=== PATIENT | female | born 1930 | race Caucasian/White ===

== ENCOUNTER 2016-12-21 11:08 | Inpatient (IN) ==
[2016-12-21 12:16] LABS: MANUAL DIFF NEEDED? NO
[2016-12-21 12:18] LABS: BASO% 0.6 % (0.0-0.8); EOS# 0.33 X1000 (0.0-0.7); EOS% 4.8 % (0.0-10.0); HEMATOCRIT 32.5 % (37.0-47.0); HEMOGLOBIN 10.5 g/dL (12.0-16.0); LYMPH# 1.33 X1000 (1.2-3.4); LYMPH% 19.5 % (20.5-51.1); MCH 29.6 PG (27-31); MCHC 32.3 g/dL (33-37); MCV 91.5 FL (81-99); MONO% 11.7 % (1.7-9.3); MPV 11.6 FL (7.4-10.4); NEUT% 63.4 % (42.2-75.2); PLT 160 X1000 (130-400); RBC 3.55 XMIL (4.2-5.4)
--- NOTE | 2016-12-21 12:24 | Diag Imaging Result Doc PS360 ---
EXAM: CHEST-2 VIEWS HISTORY: SOB TECHNIQUE: Upright AP and lateral COMPARISON: 05/06/2014 FINDINGS: The lungs are well expanded. The heart is borderline mildly prominent. Sternal wires are present.. The vessels are not distended. There are no infiltrates. No pleural effusions. Old injury to each shoulder. IMPRESSION: No pneumonia or congestive failure. Electronically signed by Willie Guidry 12/21/2016 12:21 PM
--- NOTE | 2016-12-21 12:29 | EKG Report ---
Test Performed on : 12/21/2016 12:09:56 PM Test Reason : chest pain Blood Pressure : / mmHG Vent. Rate : 055 BPM Atrial Rate : 055 BPM P-R Int : 244 ms QRS Dur : 086 ms QT Int : 394 ms P-R-T Axes : 021 -01 042 degrees QTc Int : 376 ms Sinus bradycardia. with 1st degree AV block. Voltage criteria for left ventricular hypertrophy Abnormal ECG When compared with ECG of 01-JUL-2015 14:55, No significant change was found Confirmed by David Bangura MD ([id number]) on 12/22/2016 6:46:01 PM
[2016-12-21 12:43] LABS: ALLEN TEST YES; BE 7.4 mmoll (-3.0-3.0); BLOOD TYPE ARTERIAL; DRAW SITE R RADIAL; METHB 1.4 % (0.0-1.5); O2(CT) 13.9 mL/dL (15.0-23.0); PCO2(98.6) 48 mmHg (35-45); PO2(98.6) 58 mmHg (60-100); SAMPLE BLOOD; SAO2 93.6 % (95.0-100.0); THB 10.9 g/dL (11.5-17.4); pH(98.6) 7.44 (7.35-7.45)
[2016-12-21 12:45] LABS: MODALITY ROOM AIR
[2016-12-21 12:53] LABS: ALBUMIN 3.2 g/dL (3.5-5.0); POTASSIUM 4.3 mmol/L (3.5-5.1); TOTAL BILIRUBIN 0.42 mg/dL (0.20-1.00); TOTAL PROTEIN 5.8 g/dL (6.3-8.3)
[2016-12-21 12:56] LABS: CALCIUM 12.7 mg/dL (8.8-10.2)
[2016-12-21 13:40] LABS: URINE MICRO REVIEW NEEDED? NO; URINE SOURCE VOIDED
[2016-12-21 13:44] LABS: BILIRUBIN URINE NEGATIVE (NEGATIVE); BLOOD URINE SMALL (NEGATIVE); COLOR YELLOW; GLUCOSE URINE NEGATIVE (NEGATIVE); LEUKOCYTES URINE LARGE (NEGATIVE); NITRITE URINE POSITIVE (NEGATIVE); PH URINE 5.5; PROTEIN URINE NEGATIVE (NEGATIVE); SP GRAVITY URINE 1.013; TURBIDITY URINE CLEAR (CLEAR); UROBILINOGEN URINE NORMAL (NORMAL)
[2016-12-21 13:46] LABS: UR EPITHELIAL CELLS <10 /HPF (<10); URINE BACTERIA 4+ /HPF; URINE WBC TNTC /HPF (<10)
[2016-12-21] MEDS: PROTONIX IV SCH (13:50)
[2016-12-21] MEDS: LEVAQUIN 250 MG/D5W 250 MG/50 ML IVPB IV SCH (14:00)
[2016-12-21] MEDS: NS 1,000 ML IV SCH (14:00)
[2016-12-21 14:28] LABS: INR 2.8; PROTIME 31.4 Seconds (9.2-11.7)
--- NOTE | 2016-12-21 21:39 | Diag Imaging Result Doc PS360 ---
EXAM: SHOULDER-RIGHT HISTORY: injury TECHNIQUE: Portable, two views COMPARISON: 05/03/2014 FINDINGS: There is evidence of an old healed injury to the humeral neck. No acute fracture or dislocation. IMPRESSION: No acute bony injury. Electronically signed by Willie Guidry 12/21/2016 9:37 PM
[2016-12-21] MEDS ORDERED: KEPPRA PO SCH (22:00)
--- NOTE | 2016-12-21 22:00 | HISTORY AND PHYSICAL ---
CHIEF COMPLAINT: Patient had a fall Tuesday having slurring speech, weakness, weak legs, history of pulling the leads and has swelling in the right upper shoulder. HISTORY OF PRESENT ILLNESS: An 86-year-old white female was admitted to the hospital with abnormal laboratory values. The patient was found to have hypercalcemia 13.6 and BUN 40, creatinine 2.4, hematocrit 32, platelet count 160,000, CBC 6.8. Urinalysis positive for infection. INR is 2.80. The patient has the laboratory workup done on 10/26/2016, calcium was 11, BUN 24 , creatinine 1.4. CBC was normal. Basically admitted to the hospital for hypercalcemia, dehydration and UTI. PAST MEDICAL HISTORY: 1. Asymptomatic gallstones. 2. Type 2 diabetes. 3. History of complex partial seizures. 4. Hypertension. 5. Glaucoma. 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 6. Metabolic syndrome. 7. Scoliosis of thoracolumbar spine. 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 9. History of bilateral shoulder fractures. PAST SURGICAL HISTORY: Left eye transplant, right partial eye transplant, cataract surgery, bypass surgery, benign breast biopsy. Bilateral shoulder fraction, left carotid endarterectomy, August [address] Aj. MEDICATIONS: Azopt 1% suspension daily. Citracal with vitamin D, 1 tablet p.o. b.i.d. Keppra 750, 1 tablet daily. Lisinopril 5 daily. Simvastatin 20 daily. Warfarin 5 mg daily. Latanoprost 0.005% daily. ALLERGIES: Sulfa drugs. SOCIAL HISTORY: , 3 children. Lives in [place]. No smoking. No alcohol. Retired. FAMILY HISTORY: Father of stroke at 62. Mom of heart failure at 68. HEALTH MAINTENANCE: Influenza vaccine is refused. Mammography 2013. DEXA scan November 2015. REVIEW OF SYSTEMS: HEENT: No headache. Vision problems due to legal blindness. History of seizure, controlled under Dr. Jackson. Neck: Left carotid surgery by Dr. Aj. No neck pain. Cardiopulmonary: No chest pain, shortness of breath, PND, orthopnea. GI: No nausea, vomiting, abdominal pain. Slightly pain on the left side. Extremities: No swelling of feet. Neurologic: No focal symptoms or weakness. Musculoskeletal: History of swelling in the right upper shoulder. PHYSICAL EXAMINATION: VITAL SIGNS: Afebrile. Vitals are stable. Pulse is 66. Blood pressure is 108 /74. 5 feet 3, 187 pounds. HEENT: Atraumatic, normocephalic. Legally blind, left eye completely opacified. Haziness in the right cornea, unable to see the pupils. NECK: Supple. No lymphadenopathy. CHEST: Bilateral air entry. HEART: Sounds are regular. ABDOMEN: Belly is soft, nontender. Good bowel sounds. No masses palpable. EXTREMITIES: No peripheral edema, cyanosis, clubbing. NEUROLOGIC: No obvious neurological deficits. MUSCULOSKELETAL: Right shoulder range of movements are normal, slightly has swelling in the right upper shoulder. INVESTIGATIONS: CBC: White cell count 6.8, hematocrit 32, platelets 160,000. PT 31, INR 2.8. ABG: PH is 7.44, pCO2 48, PO2 58 on room air. SMA7: Sodium 140, potassium 4.3 , chloride 104, BUN 40, creatinine 2.4. Calcium 12.7. Total protein 5.8. Urinalysis positive for infection. Chest x-ray: No pneumonia or congestive heart failure. Stable. Status post sternotomy scars. Bilateral humeral fractures. EKG: Normal sinus, nothing acute. QT intervals 376. ASSESSMENT AND PLAN: An 86-year-old white female, admitted to the hospital. 1. Hypercalcemia with new onset. We will check the parathormone level. If it is normal, consider bone scan. 2. Kidney failure. Anemia. Rule out multiple myeloma. We will order SPEP. 3. Dehydration. IV fluids. Follow up on SMA7 and calcium levels. 4. Urinary tract infection, IV Levaquin. 5. Gastrointestinal prophylaxis with IV Protonix. 6. Reconcile home medications as follows: A. Hyperlipidemia on Zocor 10 mg daily. B. 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 INR is therapeutic. C. Glaucoma, status post corneal transplant. Continue on prednisolone and had home drops with Combigan drops (timolol and brimonidine). D. Hypertension, on lisinopril 5 mg daily. E. Coronary artery disease with status post bypass surgery, stable. F. Type 2 diabetes, diet controlled. G. Hyperuricemia. asymptotic. H. History of left carotid endarterectomy, stable. I. History of partial complex seizures on Keppra 500 in the morning, [address] Jackson. Discussed with the family and will follow up. cc: Bassem Newman MD MTDD
[2016-12-21] MEDS: KEPPRA PO SCH (22:42)
[2016-12-22] MEDS: NS 1,000 ML IV SCH ×3 (02:00→20:11)
[2016-12-22 06:33] LABS: MANUAL DIFF NEEDED? NO
[2016-12-22 06:38] LABS: BASO% 0.5 % (0.0-0.8); EOS% 5.1 % (0.0-10.0); HEMATOCRIT 31.6 % (37.0-47.0); HEMOGLOBIN 10.1 g/dL (12.0-16.0); LYMPH# 1.41 X1000 (1.2-3.4); MCH 29.5 PG (27-31); MCV 92.4 FL (81-99); MONO# 0.72 X1000 (0.11-0.59); MONO% 12.2 % (1.7-9.3); MPV 11.8 FL (7.4-10.4); NEUT% 58.2 % (42.2-75.2); PLT 151 X1000 (130-400); RBC 3.42 XMIL (4.2-5.4)
[2016-12-22 06:54] LABS: INR 3.08; PROTIME 34.8 Seconds (9.2-11.7)
[2016-12-22 07:14] LABS: POTASSIUM 4.4 mmol/L (3.5-5.1)
[2016-12-22 07:18] LABS: CALCIUM 12.5 mg/dL (8.8-10.2)
[2016-12-22] MEDS ORDERED: KEPPRA PO SCH (09:00)
--- NOTE | 2016-12-22 10:57 | Diag Imaging Result Doc PS360 ---
BC DIG ABHISHEK MAMMO JESSICA, US BREAST LIMITED UNILAT-RT 12/22/2016 RIGHT BREAST ULTRASOUND TECHNIQUE: Computer aided detection imaging was used. COMPARISON: None The breasts are heterogeneously dense. FINDINGS: There is marked skin thickening over the right breast. There is a focal asymmetry which is located somewhat laterally and behind the nipple on the right. Scattered microcalcifications are present bilaterally none of which are grouped. Ultrasonography was performed over the right breast which demonstrates some marked subcutaneous edema and skin thickening. A discrete mass is not identified by ultrasonography. IMPRESSION: Edema and skin thickening over the right breast with mammographically demonstrated focal asymmetry. The possibility of inflammatory carcinoma is suspected. Biopsy is recommended. ACR BI-RADS CATEGORY 5: HIGHLY SUGGESTIVE OF MALIGNANCY, APPROPRIATE ACTION SHOULD BE TAKEN. B5-DENSE NOTE: This facility is accredited by the [employer] for Mammography. A mammogram report should not delay biopsy if a dominant or clinically suspicious mass is present. Some cancers are not identified by mammography. Adenosis and dense breasts may obscure any underlying neoplasm. Electronically signed by Brian Hutchins 12/22/2016 10:54 AM
[2016-12-22] MEDS: KEPPRA PO SCH ×2 (13:13→20:09)
[2016-12-22] MEDS: PROTONIX IV SCH (13:13)
[2016-12-22] MEDS: LEVAQUIN 250 MG/D5W 250 MG/50 ML IVPB IV SCH (13:18)
--- NOTE | 2016-12-22 16:10 | Diag Imaging Result Doc PS360 ---
BONE SCAN, TOTAL BODY - 12/22/2016 INDICATION: hypercalcemia TECHNIQUE: 28.8 mCi of MDP was administered COMPARISON: None FINDINGS: There is some mild scoliosis of the thoracolumbar spine and some facet degeneration here. No suspicious areas of uptake. Soft tissue uptake is normal. IMPRESSION: No unusual findings. Electronically signed by Nate Del Toro 12/22/2016 4:07 PM
--- NOTE | 2016-12-22 17:55 | CONSULTATION ---
DATE OF CONSULTATION: 12/22/2016 CHIEF COMPLAINT: Supraclavicular right axillary adenopathy, hypercalcemia. HISTORY: This is an 86-year-old lady, known to me from her previous carotid endarterectomy. She was admitted yesterday with some weakness, slurred speech and some swelling in her right shoulder. She is found to have hypercalcemia. Workup has suggested the possible right breast mass as well. PAST MEDICAL HISTORY: Pertinent for type 2 diabetes, seizure activity, hypertension, glaucoma, metabolic syndrome, history of DVT due to antithrombin 3 deficiency, history of bilateral shoulder fracture, history of gall stones. PREVIOUS SURGERY: Includes a right eye surgery, breast biopsy in the past, left carotid endarterectomy 1-1/2 years ago. MEDICATIONS: Listed, and include warfarin 5 mg daily. ALLERGIES: She is allergic to sulfa drugs. SOCIAL HISTORY: She is . She has attentive children. One daughter apparently works here at the hospital. FAMILY HISTORY: Pertinent for stroke and heart failure. REVIEW OF SYSTEMS: As noted above. PHYSICAL EXAMINATION: Vital Signs: She is afebrile, heart rate is 60, respiratory 16, blood pressure 158/49. Neck: A left neck scar is noted. She has right supraclavicular adenopathy. She has right axillary adenopathy. chest: She has some right nipple retraction and fullness to her right breast. No erythema is identified. No masses are palpated on the left. Lungs: Bilateral breath sounds are present. Abdomen: Soft and nontender. neurologic: She is awake and alert and oriented. LABORATORY DATA: Reveals a white count of 5800, hemoglobin 10.1, hematocrit 31.6. Pro time 34.8, INR 3.1. BUN 38, creatinine 2.1, calcium 12.5. Urine is nitrite-positive. ASSESSMENT: This lady apparently has metastatic malignancy of uncertain etiology, even though her right breast appears to be a possible source. This could account for hypercalcemia. She also has urinary tract infection. She is anticoagulated due to her antithrombin 3 deficiency. The plan will be to do a supraclavicular lymph node biopsy on December 23. I have discussed that with her. She agrees to proceed. cc: MD Bassem Ho MD
--- NOTE | 2016-12-22 22:59 | PROGRESS NOTE ---
DATE: 12/22/2016 SUBJECTIVE: The patient is a little bit weak. Doing very well. No complaints. REVIEW OF SYSTEMS: Swelling in the right side of the upper chest. OBJECTIVE: Vital signs: Temperature is 98 degrees, pulse is 60, blood pressure is 150/49, 93% on room air. Input and output -600 mL. 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 Neck /breasts: Supple. On examination the patient has a palpable lymph node on the right supraclavicular area. I did examine the breast. There is a mass at 9 o'clock position. Skin is a little bit peau d'orange noted. Abdomen: Belly is soft, nontender. Extremities: No peripheral edema , cyanosis, clubbing. INVESTIGATIONS: CBC: White cell count 5.8, hematocrit 31, platelets 151,000. PT 34. INR 3. SMA7: Sodium 144, potassium 4.4, chloride 107, BUN 38, creatinine 2.1, calcium 12.5. Vitamin D levels were normal. PTH is intact, is normal. Urine cultures are positive for gram-negative rods. Chest x-ray was stable. X-ray of the right shoulder stable. ASSESSMENT AND PLAN: 1. Hypercalcemia, normal. PTH normal. Vitamin D levels suspicious for metastatic bone disease. Follow up on bone scan. 2. Right breast mass and supraclavicular lymphadenopathy. Schedule for mammography and ultrasound suspicious with malignancy. I consulted Dr. Aj for biopsy and he has known the patient before very well. 3. 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 Continue to hold on warfarin. 4. Hypocalcemia with kidney damage. We will start with forced saline diuresis and check the laboratories in the morning. Coordination of the care with the consultants. LEVEL OF DOCUMENTATION: 35 minutes. cc: Bassem Newman MD MTDD
[2016-12-23] MEDS: NS 1,000 ML IV SCH ×4 (00:18→20:38)
[2016-12-23 06:28] LABS: MANUAL DIFF NEEDED? NO
[2016-12-23 06:44] LABS: BASO% 0.3 % (0.0-0.8); EOS# 0.33 X1000 (0.0-0.7); EOS% 5.7 % (0.0-10.0); HEMOGLOBIN 10.3 g/dL (12.0-16.0); LYMPH# 1.77 X1000 (1.2-3.4); LYMPH% 30.7 % (20.5-51.1); MCH 29.7 PG (27-31); MCHC 32.2 g/dL (33-37); MCV 92.2 FL (81-99); MONO# 0.64 X1000 (0.11-0.59); MONO% 11.1 % (1.7-9.3); NEUT% 52.2 % (42.2-75.2); PLT 154 X1000 (130-400); RBC 3.47 XMIL (4.2-5.4)
[2016-12-23 07:02] LABS: INR 2.12; PROTIME 23.4 Seconds (9.2-11.7)
[2016-12-23 07:14] LABS: CALCIUM 10.7 mg/dL (8.8-10.2); POTASSIUM 4.7 mmol/L (3.5-5.1)
[2016-12-23] MEDS ORDERED: SENSORCAINE 0.5%-EPI 1:200,000 ONE (10:06)
[2016-12-23] MEDS ORDERED: DIPRIVAN 1% ONE (11:18)
[2016-12-23] MEDS ORDERED: XYLOCAINE-MPF 2% ONE (11:29)
[2016-12-23] MEDS ORDERED: NORCO-7.5 PO PRN (12:33)
[2016-12-23] MEDS: KEPPRA PO SCH ×2 (14:17→20:39)
[2016-12-23] MEDS: SODIUM CHLORIDE 0.9% INJ SCH (14:18)
[2016-12-23] MEDS: LEVAQUIN 250 MG/D5W 250 MG/50 ML IVPB IV SCH (14:19)
[2016-12-23] MEDS: PROTONIX IV SCH (14:19)
--- NOTE | 2016-12-23 18:33 | OPERATIVE NOTE ---
PROCEDURE DATE: 12/23/2016 PROCEDURE: Right supraclavicular lymph node biopsy. SURGEON: Stevan Aj MD. BEAM DEPARTMENT SUPERVISOR: Ambika Titus. 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 This is for pathology identity. DESCRIPTION OF PROCEDURE: Satisfactory monitoring anesthesia care was established. IV sedation accomplished. The right supraclavicular area was prepped and draped in a sterile fashion. We marked the skin in the supraclavicular fossa. We anesthetized the skin with 0.5 Marcaine with epinephrine. We incised the skin, and carried our incision through the platysma. We dissected down to 1 of the nodes. We went past 1 of the cervical veins to expose a lymph node. We then dissected around the lymph node and amputated the lymph node at its depth. It was about the size of a thumb. The contiguous vein was ligated with 3-0 Polysorb [id number] stitches. This achieved satisfactory hemostasis. We then reapproximated the subcutaneous tissue with 3-0 Polysorb. The platysmal was reapproximated with interrupted 3-0 Polysorbs. The skin was closed with a 4-0 Polysorb subcuticular stitch. The specimen was sent fresh for identity. Telfa and a sterile OpSite followed by a gentle pressure dressing was applied. She tolerated it well. Was sent to the recovery room in satisfactory condition. cc: MD Bassem Ho MD
[2016-12-23] MEDS: ROCEPHIN 1 GM in NS 50 ML IV SCH (20:39)
[2016-12-24] MEDS: NS 1,000 ML IV SCH ×3 (04:57→23:45)
[2016-12-24] MEDS: LASIX IV SCH ×4 (04:58→23:39)
[2016-12-24 06:19] LABS: MANUAL DIFF NEEDED? NO
[2016-12-24 06:24] LABS: BASO% 0.3 % (0.0-0.8); EOS# 0.35 X1000 (0.0-0.7); EOS% 5.3 % (0.0-10.0); HEMATOCRIT 31.7 % (37.0-47.0); HEMOGLOBIN 10.1 g/dL (12.0-16.0); LYMPH# 1.48 X1000 (1.2-3.4); LYMPH% 22.4 % (20.5-51.1); MCH 29.5 PG (27-31); MCHC 31.9 g/dL (33-37); MCV 92.7 FL (81-99); MONO# 0.59 X1000 (0.11-0.59); MONO% 8.9 % (1.7-9.3); MPV 11.7 FL (7.4-10.4); NEUT% 63.1 % (42.2-75.2); PLT 156 X1000 (130-400); RBC 3.42 XMIL (4.2-5.4)
[2016-12-24 06:28] LABS: INR 1.53; PROTIME 16.5 Seconds (9.2-11.7)
--- NOTE | 2016-12-24 06:32 | PROGRESS NOTE ---
DATE: 12/23/2016 SUBJECTIVE: Discussed with the patient as well as the family members about the events that happened. I appreciate Dr. Aj's consult, going for with the biopsy. REVIEW OF SYSTEMS: None reported other than some sinus problems. PHYSICAL EXAMINATION: Vital Signs: Afebrile. Vitals are stable. HEENT: Within normal limits. Had a right supraclavicular lymphadenopathy. Chest: Clear. Heart: Sounds are regular. Abdomen: Belly is soft, nontender. No obvious neurological deficits. Input and output positive 2089. INVESTIGATION: CBC: White cell count 5.6, hematocrit 32, platelets 154,000. PT 23, INR 2.12. SMA 7: Sodium 143, potassium 4.7, chloride 106. BUN 37, creatinine 2.4. Calcium 10.7. SPEP was negative. Vitamin D, PTH were negative. Urine cultures are positive for E. coli. ESBL negative. Sensitive to cefazolin, resistant to Levaquin. ASSESSMENT AND PLAN: 1. Hypercalcemia. Bone scan is negative. Continue force saline diuresis. 2. Azotemia. We will follow up on creatinine. 3. Abnormal mammography with right supraclavicular lymph nodes. Plan is biopsy was done by Dr. Aj and follow up. 4. UTI resistant to Levaquin. Change to IV ceftriaxone and follow up on the labs. Results discussed with the patient's family members. We will follow up on the biopsy. Based on that, further recommendations will be followed. 5. DVT on warfarin. We will resume in the morning after 24 hours of the biopsy. Level of documentation 25 minutes. cc: Bassem Newman MD
[2016-12-24 06:50] LABS: CALCIUM 10.8 mg/dL (8.8-10.2); POTASSIUM 4.1 mmol/L (3.5-5.1)
[2016-12-24] MEDS: KEPPRA PO SCH ×2 (10:15→23:38)
[2016-12-24] MEDS: PROTONIX IV SCH (13:15)
[2016-12-24] MEDS: SODIUM CHLORIDE 0.9% INJ SCH (13:20)
[2016-12-24] MEDS: PRED FORTE 1% OPH SUSPENSION RIGHT EYE SCH ×2 (15:21→23:40)
[2016-12-24] MEDS: TEARISOL OPH SOLUTION BOTH EYES SCH ×2 (15:25→23:40)
--- NOTE | 2016-12-24 18:55 | PROGRESS NOTE ---
DATE: 12/24/2016 SUBJECTIVE: The patient is doing very well and had a supraclavicular lymph node biopsy done on the right side. REVIEW OF SYSTEMS: Constipation, none reported, OBJECTIVE: Vital Signs: On examination, afebrile. Hemodynamics are stable. Room air 96%. I's and O's -240 mL. HEENT: No change with legally blind on the left eye. Corneal transplant on the right side. Dressing noted on the right side of the neck. Lungs: Chest is clear. Heart: Sounds are regular. Abdomen: Belly is soft, nontender. Good bowel sounds. Extremities: No peripheral edema, cyanosis. Neurologic: No obvious neurological deficits. INVESTIGATIONS: CBC, white cell count 6.6, hematocrit 32, platelet 156,000. PT 16, INR 1.53, SMA 7, sodium 142, potassium 4.1, chloride 108, BUN 33, creatinine 2.1, glucose 108 , calcium 10.8, urine cultures are positive for coli. ASSESSMENT AND PLAN: 1. Hypercalcemia on forced saline_diuresis. Continue present therapy. 2. Abnormal mammogram right breast lump with a supraclavicular lymph node, appears to be stage IV breast malignancy. Will confirm on the biopsy. 3. History of deep venous thrombosis in the left leg due to antithrombin 3 deficiency. We will restart on Coumadin 5 mg daily. 4. History of seizures on Keppra. 5. Glaucoma and status post corneal transplant on the right side. Continue present eyedrops. 6. Constipation. MiraLAX. 7. GI prophylaxis with IV Protonix. 8. Urinary tract infection on ceftriaxone. Discussed with the family. Continue present therapy until Tuesday. LEVEL OF DOCUMENTATION: Twenty-five minutes. cc: MD IRENE Zaragoza
[2016-12-24] MEDS: COUMADIN PO SCH (23:38)
[2016-12-24] MEDS: ROCEPHIN 1 GM in NS 50 ML IV SCH (23:39)
[2016-12-24] MEDS: COMBIGAN OPHTH SOLN BOTH EYES SCH (23:41)
[2016-12-25] MEDS: NS 1,000 ML IV SCH ×6 (08:00→22:34)
[2016-12-25] MEDS: PRED FORTE 1% OPH SUSPENSION RIGHT EYE SCH ×4 (09:17→22:29)
[2016-12-25] MEDS: TEARISOL OPH SOLUTION BOTH EYES SCH ×4 (09:18→22:30)
[2016-12-25] MEDS: COMBIGAN OPHTH SOLN BOTH EYES SCH ×2 (09:19→22:27)
[2016-12-25] MEDS: MIRALAX PO SCH (09:57)
[2016-12-25] MEDS: KEPPRA PO SCH ×2 (09:57→22:26)
[2016-12-25] MEDS: LASIX IV SCH (10:09)
--- NOTE | 2016-12-25 14:57 | PROGRESS NOTE ---
DATE: 12/25/2016 SUBJECTIVELY: Ms. Cuello is doing fair. She is eating breakfast better. She denied any chest pain or palpitations. No nausea or vomiting. Constipation is getting better. No dysuria or hematuria. Ms. Cuello 86-year-old white female patient admitted with fall. Found to have hypercalcemia, acute kidney injury. The patient also found to have abnormal breast exam with breast lump. Patient underwent right supraclavicular lymph node biopsy. Working diagnosis is stage IV breast cancer with hypercalcemia. Patient also found to have DVT of the left leg due to antithrombin 3 deficiency. Her admission history, physical, surgical consult noted. Her vital signs reviewed. The patient had dressed wound right supraclavicular area. OBJECTIVE: Lungs: Bibasilar crepitation. No rales. CVS: 2-3/6 systolic murmur at apex. Abdomen: Soft, nontender. Bowel sounds present. Extremities: No cyanosis, clubbing. DEALER ACCOUNTS INVESTIGATOR: Alert, awake, able to move all 4 limbs. Patient does have osteoarthritis of the knee. LAB DATA: Done yesterday hemoglobin 10.1, hematocrit 31.7, WBC count 6.6, platelet 156,000. PT/INR was 1.53. BUN 33, creatinine 2.1, calcium 10.8. Serum protein electrophoresis did not reveal any monoclonal band. Intact PTH level results reviewed. Urinalysis did reveal UTI. Urine culture grew E. coli which was ESBL negative. PROBLEMS: Patient does have multiple complex issues including UTI, hypercalcemia, possibility of stage IV breast cancer is consideration, DVT of the left leg, antithrombin 3 deficiency, gastritis and reflux disease. Overall plan discussed at length with the patient and she is in agreement. Her other problem includes constipation on MiraLAX, glaucoma. cc: MD Bassem Elkins MD
[2016-12-25] MEDS: SODIUM CHLORIDE 0.9% INJ SCH (16:18)
[2016-12-25] MEDS: PROTONIX IV SCH (16:18)
[2016-12-25] MEDS: ROCEPHIN 1 GM in NS 50 ML IV SCH (22:26)
[2016-12-25] MEDS: COUMADIN PO SCH (22:26)
[2016-12-26] MEDS: NS 1,000 ML IV SCH ×3 (06:34→12:12)
[2016-12-26 06:45] LABS: MANUAL DIFF NEEDED? NO
[2016-12-26 07:02] LABS: BASO% 0.5 % (0.0-0.8); CALCIUM 10.1 mg/dL (8.8-10.2); EOS# 0.46 X1000 (0.0-0.7); EOS% 7.2 % (0.0-10.0); HEMATOCRIT 30.5 % (37.0-47.0); HEMOGLOBIN 9.7 g/dL (12.0-16.0); LYMPH# 1.58 X1000 (1.2-3.4); LYMPH% 24.7 % (20.5-51.1); MCH 29.6 PG (27-31); MCHC 31.8 g/dL (33-37); MONO# 0.56 X1000 (0.11-0.59); MONO% 8.8 % (1.7-9.3); MPV 12.2 FL (7.4-10.4); NEUT% 58.8 % (42.2-75.2); PLT 154 X1000 (130-400); POTASSIUM 3.6 mmol/L (3.5-5.1); RBC 3.28 XMIL (4.2-5.4); TOTAL BILIRUBIN 0.16 mg/dL (0.20-1.00); TOTAL PROTEIN 5.3 g/dL (6.3-8.3)
[2016-12-26] MEDS: TEARISOL OPH SOLUTION BOTH EYES SCH ×4 (09:32→22:45)
[2016-12-26] MEDS: COMBIGAN OPHTH SOLN BOTH EYES SCH ×2 (09:34→22:43)
[2016-12-26] MEDS: PRED FORTE 1% OPH SUSPENSION RIGHT EYE SCH ×4 (09:35→22:45)
[2016-12-26] MEDS: KEPPRA PO SCH ×2 (09:36→22:45)
[2016-12-26] MEDS: MIRALAX PO SCH (09:36)
[2016-12-26] MEDS: LASIX IV SCH (12:10)
[2016-12-26] MEDS: SODIUM CHLORIDE 0.9% INJ SCH (12:11)
[2016-12-26] MEDS: PROTONIX IV SCH (12:11)
--- NOTE | 2016-12-26 16:10 | PROGRESS NOTE ---
DATE: 12/26/2016 SUBJECTIVELY: Ms. Cuello is doing fair. Complaining of some pain in the right supraclavicular area, which she describes as an aching pain. No high-grade fever or chills. No nausea, vomiting. No typical chest pain. The patient had biopsy done of the right supraclavicular lymph node. No diarrhea, blood or mucus in the stool. OBJECTIVE: Vital signs: Noted. Patient is afebrile. No evidence of infection right supraclavicular area. The patient does have possible inflammatory malignancy of the right breast. CVS: S1 and S2 heard. Patient does have opacity of the left eye. Lungs: Bibasilar crepitations. Abdomen: Soft, globular, bowel sounds present. NOCTURNIST PHYSICIAN: Alert, awake. Able to move all 4 limbs. CONSIDERATION: Hypercalcemia, possibly due to stage IV breast cancer. UTI. DVT of the left leg due to antithrombin 3 deficiency. The patient is legally blind in the left eye. LABORATORY DATA DONE TODAY: Hemoglobin 9.7, hematocrit 30.5, platelet count 154,000. Electrolytes: BUN 35, creatinine 1.9, calcium 10.1. The patient. ASSESSMENT AND PLAN: She is on Coumadin 5 mg p.o. at bedtime. I am going to increase her Coumadin. Continue rest of the medications. Close observation. Continue IV hydration and Lasix for hypercalcemia. Overall plan discussed with the patient and she is in agreement. cc: MD Bassem Elkins MD
[2016-12-26] MEDS: ROCEPHIN 1 GM in NS 50 ML IV SCH (22:44)
[2016-12-26] MEDS: COUMADIN PO SCH (22:45)
[2016-12-27 06:45] LABS: INR 1.17; PROTIME 12.4 Seconds (9.2-11.7)
[2016-12-27] MEDS: NS 1,000 ML IV SCH ×2 (06:45→08:50)
[2016-12-27 07:03] LABS: CALCIUM 10.5 mg/dL (8.8-10.2); POTASSIUM 3.4 mmol/L (3.5-5.1); TOTAL BILIRUBIN 0.18 mg/dL (0.20-1.00); TOTAL PROTEIN 5.4 g/dL (6.3-8.3)
[2016-12-27] MEDS ORDERED: BENADRYL IV PRN (08:49)
[2016-12-27] MEDS: TEARISOL OPH SOLUTION BOTH EYES SCH ×4 (08:51→21:09)
[2016-12-27] MEDS: COMBIGAN OPHTH SOLN BOTH EYES SCH ×2 (08:51→21:09)
[2016-12-27] MEDS: PRED FORTE 1% OPH SUSPENSION RIGHT EYE SCH ×4 (08:52→21:09)
[2016-12-27] MEDS: KEPPRA PO SCH ×2 (08:53→21:04)
[2016-12-27] MEDS: MIRALAX PO SCH (08:53)
[2016-12-27] MEDS ORDERED: KLOR-CON PO ONE (08:54)
[2016-12-27] MEDS: SODIUM CHLORIDE 0.9% INJ SCH (14:08)
[2016-12-27] MEDS: LOVENOX SUBQ SCH ×2 (14:08→21:05)
[2016-12-27] MEDS: PROTONIX IV SCH (14:08)
--- NOTE | 2016-12-27 17:58 | CONSULTATION ---
DATE OF CONSULTATION: 12/27/2016 REQUESTING PHYSICIAN: Dr. Newman. REASON FOR CONSULTATION: Metastatic breast cancer. HISTORY OF PRESENT ILLNESS: Patient is an 86-year-old female, who was admitted on 12/21/2016 with change in mental status. Upon admission, she was noted to have hypercalcemia 13.6, acute renal failure with creatinine 2.4, anemia and UTI. Over the course of the hospitalization she has received IV antibiotics and her UTI has improved. She has received IV hydration and her creatinine which maxed out at 2.4 has trended down to 1.9. Her calcium level was down to 10.5. A shoulder x-ray was performed which did not reveal any acute injury. She was noted to have supraclavicular lymphadenopathy and underwent a mammogram. This revealed an abnormality in the breast with no corresponding abnormality on the ultrasound. Skin thickening was noted. She underwent supraclavicular lymph node biopsy by Dr. Aj. Pathology revealed a poorly differentiated malignancy. I have been advised to consult. PAST MEDICAL HISTORY: Diabetes, complex partial seizures, hypertension. 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 PAST SURGICAL HISTORY: Left eye transplant, CABG, left carotid endarterectomy, bilateral shoulder fracture. ALLERGIES: Sulfa. CURRENT MEDICATIONS: Hydrocodone, ceftriaxone, Lovenox, Keppra, Protonix, MiraLAX, Coumadin. SOCIAL HISTORY: Patient lives in [place] with her sister. She denies smoking, alcohol, or substance abuse. FAMILY HISTORY: Positive for heart failure and stroke. REVIEW OF SYSTEMS: Patient has arthritic joint pains with no new pain. She denies anorexia or weight loss. She denies fevers or night sweats. She denies nausea, vomiting, abdominal pain. All other review of systems are negative. PHYSICAL EXAMINATION: General: The patient is a well-developed, well- nourished female, in no acute distress. Vital Signs: Temperature 97.6 degrees, pulse 71, blood pressure 130/49. HEENT: Right eye EOMI. Left eye opacification is noted. Anicteric. Neck: Supple without JVD, thyromegaly. Large bandage is noted in the left supraclavicular area. There is an infraclavicular node. Axillary lymph node is noted as well. Breast Examination : Reveals no obvious mass but thickening of the skin. Cardiac: Regular rate and rhythm. Normal S1, S2. Chest: Clear to auscultation. Abdomen: Soft, nontender, without hepatosplenomegaly or masses. Extremities: No cyanosis, clubbing. Right upper extremity is swollen. Neurological: Alert and oriented x3. No focal motor deficits. LABORATORY DATA: White count 6.3, hemoglobin 9.7, MCV 93, platelets 154,000. INR 1.17. BUN 34, creatinine 1.9, calcium 10.5. SPEP negative. Vitamin D 16.5. Intact PT at 61. ASSESSMENT/PLAN: 1. Poorly differentiated malignancy in the subclavicular lymph node biopsy with abnormal mammogram and breast findings: Check [id number]. Plan for an outpatient PET scan for staging purposes. Away final pathology. 2. Hypercalcemia: Intact PTH is at the upper limit of normal. Bone scan reveals degenerative joint disease but no evidence of metastatic disease. 1. Renal insufficiency: Creatinine has trended down to 1.9. I am not sure if this is her baseline. Continue IV fluids. 2. Anemia: Proceed with a full anemia profile today. cc: MD Bassem Louie MD MTDD
--- NOTE | 2016-12-27 19:18 | PROGRESS NOTE ---
DATE: 12/27/2016 SUBJECTIVE: Events noted over the weekend. Patient complains of right arm swelling. Warfarin was started. REVIEW OF SYSTEM: Itching. PHYSICAL EXAMINATION: Vital Signs: Afebrile. Vital signs are stable. I's and O's -500 mL. HEENT: No visible rash noted. 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 Extremities: Right arm swelling with lymph nodes in the axilla. Chest: Clear. Heart: Sounds are regular. Abdomen: Belly is soft, nontender. Good bowel sounds. No masses palpable. Neurologic: No neurological deficits. INVESTIGATIONS: PT 12, INR 1.1. SMA 7: Sodium 142, potassium 3.4, chloride 104, BUN 34, creatinine 1.9, glucose 125, calcium 10.5. B12 is normal. Vitamin D is normal. Urine cultures, E. coli. ASSESSMENT AND PLAN: 1. Right leg swelling. Rule out deep vein thrombosis with venous ultrasound. 2. Hypercalcemia, improving. Discontinue saline diuresis. 3. Azotemia, improving. Cut down the fluids to 50 mL/hour. 4. Generalized itching. Questionable etiology. Benadryl as needed. 5. History of deep vein thrombosis. INR is subtherapeutic. Continue on Lovenox subcutaneously q.12. 6. Gastrointestinal prophylaxis with IV Protonix. 7. Constipation. On MiraLAX next. 8. 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 Discussed with the patient and family. Consult with Dr. Perez. LEVEL OF DOCUMENTATION: 35 minutes. cc: Bassem Newman MD
[2016-12-27] MEDS: ROCEPHIN 1 GM in NS 50 ML IV SCH (21:03)
[2016-12-27] MEDS: COUMADIN PO SCH (21:04)
[2016-12-28] MEDS: NS 1,000 ML IV SCH (05:20)
[2016-12-28 06:31] LABS: RETIC% 1.13 % (0.8-2.1); RETIC-HE 32.6 PG (28.2-36.6)
[2016-12-28 06:55] LABS: IRON SATURATION 14 %; TIBC 221 ug/dL; TOTAL IRON 32 ug/dL (49-151); UNBOUND IRON 189 ug/dL (112-346)
[2016-12-28] MEDS: COMBIGAN OPHTH SOLN BOTH EYES SCH ×2 (08:33→20:52)
[2016-12-28] MEDS: PRED FORTE 1% OPH SUSPENSION RIGHT EYE SCH ×4 (08:33→20:52)
[2016-12-28] MEDS: TEARISOL OPH SOLUTION BOTH EYES SCH ×4 (08:33→20:53)
[2016-12-28] MEDS: KEPPRA PO SCH ×2 (08:34→20:53)
[2016-12-28] MEDS: LOVENOX SUBQ SCH (08:34)
[2016-12-28] MEDS: MIRALAX PO SCH (08:34)
--- NOTE | 2016-12-28 10:46 | Diag Imaging Result Doc PS360 ---
EXAM: CT NECK W/O CONTRAST - 12/28/2016 HISTORY: neck mass TECHNIQUE: Without contrast per request the referring provider. Low-dose protocol. COMPARISON: Axial images from CT carotid angiogram of 06/13/2015. FINDINGS: There is posterior triangle adenopathy on the right, most prominent at and below the level of the hyoid. There are substantial supraclavicular adenopathy on the right. The adenopathy was not present on the previous exam. The thyroid is somewhat lobulated and heterogeneous. There is no other discrete focal neck mass identified. The left piriform sinus is small but this is stable. There are carotid artery calcifications noted, the right common carotid arteries noted to be tortuous. IMPRESSION: Posterior triangle adenopathy on the right. Substantial supraclavicular adenopathy on the right. Somewhat lobulated and heterogeneous thyroid. Electronically signed by Evan Rayo 12/28/2016 10:44 AM
--- NOTE | 2016-12-28 10:51 | Diag Imaging Result Doc PS360 ---
EXAM: CT ABDOMEN/PELVIS W/O CONTRAST - 12/28/2016 HISTORY: lymphnodes TECHNIQUE: Without contrast per request the referring provider. Low-dose protocol. COMPARISON: 11/20/2013 FINDINGS: There are no acute abnormalities of the liver, spleen, adrenal glands, or pancreas identified. There are multiple calcified gallstones again seen. There is no pericholecystic inflammation. There are no acute abnormalities of the kidneys identified. There is no renal stone or hydronephrosis identified. There are nonspecific small retroperitoneal lymph nodes. There are no substantial enlarged lymph nodes identified. There are atherosclerotic calcifications noted. There are lumbar spine degenerative changes noted. There is no evidence of bowel obstruction. There is retained fecal debris in the colon suggesting constipation. There is mild colonic diverticulosis, primarily at the sigmoid. There is no evidence of diverticulitis. There is no free air or abscess identified. Images of pelvis otherwise show minimal free fluid. There is no discrete pelvic mass identified. There is a small amount of air in the urinary bladder lumen but this may relate to recent instrumentation. IMPRESSION: Multiple calcified gallstones. No pericholecystic inflammation. Constipation. Uncomplicated colonic diverticulosis. Nonspecific small retroperitoneal lymph nodes. No substantial enlarged lymph nodes. No other definite evidence of acute disease in the abdomen or pelvis. Electronically signed by Evan Rayo 12/28/2016 10:49 AM
[2016-12-28] MEDS: SODIUM CHLORIDE 0.9% INJ SCH (13:12)
[2016-12-28] MEDS: PROTONIX IV SCH (13:12)
--- NOTE | 2016-12-28 13:42 | PROGRESS NOTE ---
DATE: 12/28/2016 HPI: Patient is feeling reasonably well. She is sitting out in a chair at this time. She has walked in the room and in the hallway. No other complaints today. PHYSICAL EXAMINATION: Vital signs: Temperature 97.9 degrees, pulse 83, blood pressure 144/54. Eyes: Anicteric. Cardiac Exam: Regular rate and rhythm. Normal S1, S2. Chest: Clear to auscultation. Abdomen: Soft, nontender, without hepatosplenomegaly or masses. Extremities: No cyanosis. Right upper extremity swelling is slowly decreasing. Neck: Reveals lymphadenopathy on the right side. LABS: Iron percent saturation is 14. Ferritin is 31. B12, folate normal. CT of the abdomen, pelvis. No evidence of lymphadenopathy. CT colon. Significant right neck and supraclavicular lymph nodes. ASSESSMENT/PLAN: 1. Right breast abnormality with supraclavicular and right neck lymphadenopathy: I discussed the pathology with Dr. Valle. He believes this is a lymphoma. Final diagnosis is pending. She will require a outpatient PET scan. Once we get the final pathology will plan further management accordingly. Proceed with a MUGA scan. 2. Iron deficiency anemia: Start her on IV iron today. 3. DVT prophylaxis: She is on Lovenox from that particular standpoint. 4. Renal insufficiency: Continue to monitor creatinine. 5. 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 6. Hypercalcemia: Continue to follow. cc: MD Bassem Louie MD
--- NOTE | 2016-12-28 19:23 | PROGRESS NOTE ---
DATE: 12/28/2016 SUBJECTIVE: Patient has complaint of itching now. Out of bed. Supraclavicular lymph node biopsy wound looks fine. REVIEW OF SYSTEMS: None reported. PHYSICAL EXAMINATION: Vital Signs: She is afebrile. Vitals are stable. HEENT Examination: Within normal limits. Neck: There is significant lymphadenopathy. Chest: Clear. Heart: Sounds are regular. Abdomen: Belly is soft, nontender. Good bowel sounds. Neurologic: No neurological deficits. LABS: No labs were done. INR 1.1. ASSESSMENT AND PLAN: 1. I discussed with Dr. Bourne it looks more like lymphoma. 2. In light of the symptom of itching, we are in favor of lymphoma. 3. Consider CT of the neck, thoracic, abdomen and pelvis. 4. Deep vein thrombosis with subtherapeutic INR. Change to Lovenox once daily along with warfarin and Benadryl for itching. 5. Follow up on CA 27-[address] Further recommendations will be followed. 6. Urinary tract infection on ceftriaxone. LEVEL OF DOCUMENTATION: 25 minutes. cc: Bassem Newman MD MTDD
[2016-12-28] MEDS: COUMADIN PO SCH (20:54)
[2016-12-28] MEDS: ROCEPHIN 1 GM in NS 50 ML IV SCH (20:56)
[2016-12-29] MEDS: NS 1,000 ML IV SCH ×2 (04:10→22:18)
[2016-12-29 06:33] LABS: MANUAL DIFF NEEDED? NO
[2016-12-29 06:39] LABS: BASO% 0.5 % (0.0-0.8); EOS# 0.39 X1000 (0.0-0.7); EOS% 6.6 % (0.0-10.0); HEMATOCRIT 30.2 % (37.0-47.0); HEMOGLOBIN 9.6 g/dL (12.0-16.0); IMM GRAN# 0.02 X1000 (0.0-0.04); IMM GRAN% 0.3 % (0.0-0.5); LYMPH# 1.41 X1000 (1.2-3.4); MCH 29.4 PG (27-31); MCHC 31.8 g/dL (33-37); MCV 92.6 FL (81-99); MONO# 0.67 X1000 (0.11-0.59); MONO% 11.4 % (1.7-9.3); MPV 11.5 FL (7.4-10.4); NEUT% 57.2 % (42.2-75.2); PLT 161 X1000 (130-400); RBC 3.26 XMIL (4.2-5.4)
[2016-12-29 06:59] LABS: INR 1.48; PROTIME 15.9 Seconds (9.2-11.7)
[2016-12-29 07:14] LABS: CALCIUM 10.9 mg/dL (8.8-10.2); POTASSIUM 4.3 mmol/L (3.5-5.1)
[2016-12-29] MEDS ORDERED: BENADRYL IV ONE (08:30)
[2016-12-29] MEDS ORDERED: INJECTAFER IV ONE ×2 (08:33→09:00)
[2016-12-29] MEDS ORDERED: LOVENOX SUBQ SCH (09:00)
[2016-12-29] MEDS ORDERED: NS IV ONE (09:00)
[2016-12-29] MEDS: COMBIGAN OPHTH SOLN BOTH EYES SCH ×2 (09:00→21:54)
--- NOTE | 2016-12-29 09:02 | Diag Imaging Result Doc PS360 ---
EXAM: CT THORAX W/O CONTRAST HISTORY: breast mass TECHNIQUE: CT chest without contrast. Dose reduction protocol. COMPARISON: None. FINDINGS: Minimal posterior pleural thickening. No significant pleural fluid. No cardiomegaly. Sternal wires are present. No thoracic aortic aneurysm. There are calcified subcarinal and right hilar lymph nodes. There are small noncalcified mediastinal nodes. There is a calcified granuloma in the right lower lobe. No consolidation. No bronchiectasis. I do not identify a lung mass. Tiny 3 mm nonspecific nodule anteriorly in the right lower lobe on image 63. There are very large right axillary and supraclavicular lymph nodes. Enlarged lymph nodes deviate the thyroid from the right to the left. The largest nodes measure over 4 cm in the size. There is a large amount of edema as well as skin thickening within the right breast. IMPRESSION: 1.Very large right axillary and supraclavicular lymph nodes with right breast skin thickening and edema highly suspicious for malignancy. 2.There is evidence of a prior granulomatous infection 3.There is at least moderate atherosclerosis 4.cholelithiasis on the limited images through the upper abdomen. Electronically signed by Willie Guidry 12/29/2016 9:00 AM
--- NOTE | 2016-12-29 09:35 | EKG Report ---
Test Performed on : 12/29/2016 09:04:45 AM Test Reason : chest pain Blood Pressure : / mmHG Vent. Rate : 071 BPM Atrial Rate : 071 BPM P-R Int : 254 ms QRS Dur : 090 ms QT Int : 366 ms P-R-T Axes : 043 -02 047 degrees QTc Int : 397 ms Sinus rhythm. with marked sinus arrhythmia. with 1st degree AV block. Minimal voltage criteria for LVH, may be normal variant Septal infarct , age undetermined Abnormal ECG When compared with ECG of 21-DEC-2016 12:09, Septal infarct is now present Confirmed by David Bangura MD ([id number]) on 12/29/2016 8:33:34 PM
[2016-12-29] MEDS ORDERED: BENADRYL INJ ONE (10:35)
[2016-12-29] MEDS ORDERED: NS INJ ONE (10:35)
[2016-12-29] MEDS: MIRALAX PO SCH (10:39)
[2016-12-29] MEDS: KEPPRA PO SCH (10:40)
[2016-12-29] MEDS: PRED FORTE 1% OPH SUSPENSION RIGHT EYE SCH ×4 (10:41→21:55)
[2016-12-29] MEDS: CORTISPORIN OTIC SOLN RIGHT EAR SCH ×4 (10:41→21:54)
[2016-12-29] MEDS: TEARISOL OPH SOLUTION BOTH EYES SCH ×4 (10:42→21:55)
[2016-12-29] MEDS: PROTONIX IV SCH (12:40)
[2016-12-29] MEDS: SODIUM CHLORIDE 0.9% INJ SCH (12:40)
--- NOTE | 2016-12-29 20:39 | PROGRESS NOTE ---
DATE: 12/29/2016 SUBJECTIVE: The patient is doing well, out of the bed easily and eating. Complains of chest pain on the left side. Also complains of right ear pain. REVIEW OF SYSTEMS: Otherwise none reported. PHYSICAL EXAMINATION: Vital signs are stable. 97% on room air. HEENT: Within normal limits. Significant lymphadenopathy on the right side of the neck and the abdomen axilla noted. Thickening of the skin in the right breast. Chest: Clear. Heart: Sounds are regular. Abdomen: Belly is soft, nontender. Good bowel sounds. No masses palpable. Neurologic: Nonfocal. INVESTIGATIONS: CBC: White cell count 5.8, hematocrit 30, platelets 161,000. PT 15, INR 1.5. SMA 7: Sodium 140, potassium 4.3, chloride 106, BUN 29, creatinine 1.6, glucose 287. Calcium 10.9. ASSESSMENT AND PLAN: 1. Chest pain on the left side. EKG normal sinus, nothing acute. Follow up on cardiac enzymes. 2. Right ear pain due to external otitis. Cortisporin drops. 3. High-grade B-cell lymphoma, poorly differentiated. 4. CT of the thorax, CT of the neck and the abdominal findings were noted. 5. Multiple gallstones asymptomatic. 6. History of deep vein thrombosis in the left leg. INR is subtherapeutic. Continue treating with Lovenox. 7. Right arm swelling due to lymphadenopathy. Elevation with sleeve. 8. Urinary tract infection. Stable on IV antibiotics with ceftriaxone. 9. We will discuss with Dr. Aj for possible port placement and will follow up on pending labs. LEVEL OF DOCUMENTATION: 25 minutes. cc: Bassem Newman MD
[2016-12-29] MEDS: COUMADIN PO SCH (21:52)
[2016-12-29] MEDS: ROCEPHIN 1 GM in NS 50 ML IV SCH (21:53)
[2016-12-30 07:19] LABS: INR 1.53; PROTIME 16.5 Seconds (9.2-11.7)
[2016-12-30] MEDS: CORTISPORIN OTIC SOLN RIGHT EAR SCH ×4 (08:48→22:44)
[2016-12-30] MEDS: KEPPRA PO SCH ×4 (08:48→22:46)
[2016-12-30] MEDS: COMBIGAN OPHTH SOLN BOTH EYES SCH ×2 (08:48→22:45)
[2016-12-30] MEDS: PRED FORTE 1% OPH SUSPENSION RIGHT EYE SCH ×4 (08:49→22:44)
[2016-12-30] MEDS: TEARISOL OPH SOLUTION BOTH EYES SCH ×4 (08:49→22:47)
[2016-12-30] MEDS: MIRALAX PO SCH (08:51)
[2016-12-30] MEDS ORDERED: HYDROXYZINE PO PRN (08:52)
--- NOTE | 2016-12-30 09:21 | PROGRESS NOTE ---
DATE: 12/30/2016 SUBJECTIVE: The patient is out of bed basically itching. REVIEW OF SYSTEMS: None reported. OBJECTIVE: Vital Signs: On examination is afebrile. Vitals are stable. Room air 91%. Input and output 375. HEENT Exam: Left eye legally blind. Matted nodes in the right side axilla and the right side of the neck. Chest: Clear. Heart: Sounds are regular. Abdomen: Belly is soft, nontender. Neurological: No obvious neurological deficits. INR is 1.5. ASSESSMENT AND PLAN: 1. High-grade B-cell lymphoma. Computed tomography of the thorax findings discussed with Dr. Perez and Dr. Aj. Plan is a port tomorrow. Hold the Coumadin and Lovenox. 2. Chest pain. Ruled out for myocardial infarction. Electrocardiogram is negative. Cardiac enzymes negative. Schedule for MUGA scan. 3. Urinary tract infection on intravenous ceftriaxone. 4. Right ear pain is better. Itching is due to symptoms from lymphoma and hydroxyzine as needed. Discussed the plan of care with family members. Will follow up. LEVEL OF DOCUMENTATION: 25 minutes. cc: Bassem Newman MD
--- NOTE | 2016-12-30 11:10 | Diag Imaging Result Doc PS360 ---
EXAM: MUGA (GATED CARDIAC SCAN) HISTORY: LVF TECHNIQUE: Gated cardiac wall motion study, 21.4 mCi of technetium 99m pertechnetate and cold PYP COMMENT: The heart was imaged in the PORTUGUESE projection. There is adequate wall motion and the ejection fraction of the left ventricle is calculated at 63%. IMPRESSION: Normal study. Electronically signed by Brian Hutchins 12/30/2016 11:08 AM
[2016-12-30] MEDS: SODIUM CHLORIDE 0.9% INJ SCH (13:54)
[2016-12-30] MEDS: PROTONIX IV SCH (13:54)
--- NOTE | 2016-12-30 14:24 | PROGRESS NOTE ---
DATE: 12/30/2016 HISTORY OF PRESENT ILLNESS: Patient reports that she is doing well. She is doing her exercises and eating very well. She has walked in the hallway today. No other complaints. PHYSICAL EXAMINATION: General: Alert and oriented x3. Vital Signs: Afebrile. Vital signs are stable. Cardiac: Regular rate and rhythm. Normal S1, S2. Chest: Clear to auscultation. Abdomen: Soft, nontender, without hepatosplenomegaly or masses. Lymph nodes: Survey reveals lymphadenopathy in the neck and in the right axilla. DIAGNOSTIC DATA: MUGA scan: Ejection fraction 63%. ASSESSMENT/PLAN: 1. Right breast abnormality with axillary and supraclavicular lymph nodes. Final pathology is available. High-grade B-cell lymphoma, nongerminal center subtype, CD20 positive. Discussed these findings with the patient. She will require chemotherapy for diffuse large B-cell lymphoma. Given her age, we may not be able to give her R-CHOP chemotherapy. However, we have many other options. Proceed with Port-A-Cath placement and we will schedule her PET scan outpatient and see her back soon. 2. Iron deficiency: She is status post IV iron x1. 3. Renal insufficiency: Creatinine is down to 1.6 yesterday. Continue IV fluids and patient has been advised liberal fluid intake. 4. 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 5. Hypercalcemia: Calcium continues to be elevated at 10.9. This is due to her lymphoma. Proceed with a dose of Xgeva. cc: MD Bassem Louie MD
[2016-12-30] MEDS: NS 1,000 ML IV SCH (15:08)
--- NOTE | 2016-12-30 18:58 | Extremity Venous Study ---
PROCEDURE NAME: Venous U/S Right Arm - 12/27/2016 REFERRING PHYSICIAN: Bassem Newman MD. READING PHYSICIAN: Emmanuel Phillips MD. RECORD CHANGER TESTER: Yomaira. INDICATION: Right arm swelling. Patient is status post lymphadenectomy in the right subclavian area. FINDINGS: The right internal jugular, subclavian, axillary, basilic, brachial and cephalic veins were imaged. The veins were compressible, patent and without thrombus. Several lymph nodes were noted in the right subclavian area. INTERPRETATION: No evidence of deep or superficial venous thrombosis in the right upper extremity. cc: MD Bassem Hay MD
[2016-12-30] MEDS: ROCEPHIN 1 GM in NS 50 ML IV SCH (22:45)
[2016-12-31 06:28] LABS: INR 1.49
[2016-12-31] MEDS ORDERED: PROTONIX PO SCH (07:00)
[2016-12-31] MEDS: COMBIGAN OPHTH SOLN BOTH EYES SCH (09:04)
[2016-12-31] MEDS: CORTISPORIN OTIC SOLN RIGHT EAR SCH ×2 (09:04→13:15)
[2016-12-31] MEDS: KEPPRA PO SCH ×2 (09:05→12:37)
[2016-12-31] MEDS: MIRALAX PO SCH ×2 (09:05→12:37)
[2016-12-31] MEDS: PRED FORTE 1% OPH SUSPENSION RIGHT EYE SCH ×2 (09:05→13:15)
[2016-12-31] MEDS: TEARISOL OPH SOLUTION BOTH EYES SCH ×2 (09:05→13:16)
[2016-12-31] MEDS ORDERED: XYLOCAINE 1% ONE (09:19)
[2016-12-31] MEDS ORDERED: MARCAINE 0.25% PF ONE (09:19)
[2016-12-31] MEDS ORDERED: NS 250 ML ONE (09:19)
[2016-12-31] MEDS ORDERED: KEFZOL 1 GM/D5W 1 GM/50 ML IVPB ONE (09:21)
[2016-12-31] MEDS ORDERED: DIPRIVAN 1% ONE (09:41)
[2016-12-31] MEDS ORDERED: XYLOCAINE-MPF 2% ONE (09:41)
--- NOTE | 2016-12-31 10:36 | OPERATIVE NOTE ---
PROCEDURE DATE: 12/31/2016 PROCEDURE PERFORMED: Left subclavian port placement. SURGEON: Stevan Aj MD. POLL CLERK: LUDIN Dias. PREOPERATIVE DIAGNOSIS: Lymphoma. POSTOPERATIVE DIAGNOSIS: Lymphoma. DESCRIPTION OF PROCEDURE: Satisfactory monitoring anesthesia care was established. IV sedation accomplished to the left upper anterior chest and neck were prepped and draped in a sterile fashion. We anesthetized the skin the deltopectoral groove with 1% lidocaine without epinephrine. We incised the skin, and achieved satisfactory hemostasis with electrocautery. We developed subcutaneous pocket that would admit the PowerPort. we then accessed the left subclavian vein without difficulty and passed the guidewire under fluoroscopic guidance into the superior vena cava. We passed the dilator and introducer sheath over the guidewire, removed the dilator and guidewire, introduced the 9.6-[place] single-lumen silicone catheter through the sheath into the superior vena cava to the junction of the right atrium. We cut the catheter to the appropriate length, passed it on the stem of the port, and locked it in position. We placed the port within the pocket. We secured it there with a 2-0 silk through the subcutaneous tissue and a hole in the rim of the port. We irrigated out the port pocket with saline. We then placed 3-0 Polysorb in the subcutaneous tissue. We accessed the port. It aspirated and irrigated easily. We gave the patient 4 mL of Hep-Lock. We then closed the skin with a 4-0 Polysorb subcuticular stitch. Telfa and sterile OpSite was applied. She tolerated it well. Sent to the recovery room in satisfactory condition. cc: MD Bassem Ho MD Naveen T. Lobo, MD
[2016-12-31] MEDS: NS 1,000 ML IV SCH (13:15)
[2016-12-31 13:53] VITALS: BP 184/64
--- NOTE | 2017-01-02 20:44 | DISCHARGE SUMMARY ---
ADMISSION DATE: 12/21/2016 DISCHARGE DATE: 12/22/2016 DISCHARGING DIAGNOSIS: Altered mental status due to metabolic encephalopathy due to hypercalcemia due to high-grade poorly differentiated B-cell lymphoma. SECONDARY DIAGNOSES: 1. Asymptomatic gallstone disease. 2. Urinary tract infection due to Escherichia coli. 3. Type 2 diabetes. 4. History of complex partial seizures. 5. Hypertension. 6. Glaucoma. 7. 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 8. Metabolic syndrome. 9. Scoliosis of thoracolumbar spine. 10. History of deep venous thrombosis due to anti thrombin 3 deficiency. 11. History of bilateral shoulder fractures. CONSULTANTS: 1. Dr. Stevan Aj. 2. Dr. Solo Perez. PROCEDURES: 1. Port-A-Cath on the left side. 2. Right supraclavicular lymph node biopsy consistent with high-grade B-cell lymphoma. 3. Radiology procedures. Bone scan: No lytic lesions noted. 4. MUGA scan, ejection fraction 63%. 5. Mammography and ultrasound on the right breast. BRIEF HISTORY: Please see the H and P that was done on 12/21/2016. In brief, she is an 86-year- old white female, was admitted to the hospital with altered mental status associated with urinary tract infection and hypercalcemia and renal insufficiency. Initial calcium levels were 13.6. HOSPITAL COURSE: Followed the hypercalcemia workup. Patient has a normal vitamin D level. Normal PTH level. A bone scan was negative. During the examination at the time , patient found some swelling in the right clavicle bone. Examination is compatible with lymphadenopathy associated with edema and mass in the right breast. Mammography was BI-RADS 5. While the workup was in progress, patient was started on forced diuresis. She was also found to have urinary tract infection due to E. Coli. She was started on IV ceftriaxone. She was complaining of itching, requiring Benadryl. Further workup revealed the patient was diagnosed high-grade poorly differentiated lymphoma. Dr. Perez was consulted. He is arranging the PET scan on Tuesday afternoon. The patient also had a port placed on the left side and MUGA scan was normal. At the time of discharge, patient was stable and the diagnosis was given to the patient , mostly due to lymphoma other than breast cancer. LABORATORIES: At the time of discharge, as follows: CBC, white cell count 5.8 , hematocrit 30, platelet 161,000. PT 16, INR 1.5. ABG on room air. PH is 7.44, pCO2 48, PO2 58. SMA7: Sodium 140, potassium 4.3, chloride 107, BUN 29, creatinine 1.6, Calcium 10.9. Cardiac enzymes: [place]roponin [place]. [place] 27[address] is normal. Vitamin B12 is normal. Vitamin D levels were normal. Folate is normal. PTH is intact, is normal. DISCHARGE INSTRUCTIONS: 1. Follow up with Dr. Perez on Tuesday for a PET scan and further evaluation for lymphoma. 2. Aspirin 325 daily. 3. Prednisolone forte, 1 drop right eye 4 times daily. 4. Simvastatin 20 daily. 5. Lisinopril 5 mg daily. 6. Combivent eye drops 1 drop p.o. b.i.d. 7. Artificial Tears 1 drop 4 times daily. 8. Keppra 500 p.o. b.i.d. 9. Calcium with vitamin D, 1 tablet daily. 10. Hydroxyzine 25 t.i.d. for itching. 11. Warfarin 5 mg daily. cc: MD Stevan Zaragoza MD Naveen T. Lobo, MD MTDD
== END 2016-12-31 14:18 | disposition home health service (06) ==
LOC: 3N 20:21
PROVIDERS: ADMIT Internal Medicine; ATTEND Internal Medicine

== ENCOUNTER 2017-01-04 16:37 | Inpatient (IN) ==
[2017-01-04] MEDS ORDERED: NS 1,000 ML IV SCH (17:23)
[2017-01-04] MEDS ORDERED: NS 1,000 ML ONE (17:43)
[2017-01-04] MEDS ORDERED: HYDROXYZINE PO PRN (18:13)
[2017-01-04 21:00] LABS: INR 1.02; PROTIME 10.7 Seconds (9.2-11.7)
[2017-01-04] MEDS ORDERED: KEPPRA PO SCH (21:00)
[2017-01-04] MEDS ORDERED: KEPPRA PO ONE (22:15)
[2017-01-04] MEDS: COMBIGAN OPHTH SOLN RIGHT EYE SCH (22:28)
[2017-01-04] MEDS: LOVENOX SUBQ SCH (22:29)
[2017-01-04] MEDS: COUMADIN PO SCH (22:29)
[2017-01-04] MEDS: PRED FORTE 1% OPH SUSPENSION RIGHT EYE SCH (22:29)
--- NOTE | 2017-01-05 03:18 | HISTORY AND PHYSICAL ---
CHIEF COMPLAINT: Altered mental status, swelling of legs, hypercalcemia of 13, creatinine of 1.9. HISTORY OF PRESENT ILLNESS: She is an 86-year-old, white female recently discharged from the hospital on Tuesday after diagnosed with diffuse large cell B lymphoma, poorly differentiated, high- grade. Seen by Dr. Perez. She had a PET scan done this afternoon. Came to his office. She was completely confused. Dr. Perez decided to be admitted under my service with altered mental status due to hypercalcemia and further management. She is not able to tolerate chemotherapy as an outpatient. Patient was seen in the emergency room. She was started on IV fluids with forced diuresis. She has increasing swelling in the right axilla. PAST MEDICAL HISTORY: Asymptomatic gallstones, type 2 diabetes, history of complex partial seizures, hypertension, glaucoma, metabolic syndrome, thoracolumbar scoliosis, history of DVT due to antithrombin 3 deficiency, history of bilateral shoulder fractures, and diffuse large cell lymphoma, waiting for staging. PAST SURGICAL HISTORY: Left eye transplant, corneal, right partial eye corneal transplant, cataract surgery on both sides, bypass surgery, benign breast biopsy, bilateral shoulder fractures, left carotid endarterectomy, right supraclavicular lymph node biopsy, Port-A-Cath on the left side. MEDICATIONS: Aspirin 325 daily, prednisolone eyedrops to right eye 4 times daily, simvastatin 20 daily, lisinopril 5 mg daily, vitamin supplement daily, Combigan eyedrops b.i.d., Keppra 500 p.o. b.i.d., hydroxyzine 25 p.o. t.i.d., warfarin 5 mg daily, allopurinol 100 mg daily. ALLERGIES: Reported to sulfa. SOCIAL HISTORY: She is . Three children. Lives in [place]. No smoking. No alcohol. Retired. FAMILY HISTORY: Father of a stroke at 62. Mom of heart failure at 68. REVIEW OF SYSTEMS: Constitutional: Confused. Denies of any significant complaints. Respiratory: No shortness of breath, PND, orthopnea. GI: No nausea, vomiting, abdominal pain. Extremities: Swelling of legs. Neurological: No neurological symptoms or weakness. PHYSICAL EXAMINATION: VITAL SIGNS: Afebrile. Vitals are stable. Height 5 feet 4 inches, 200 pounds. HEENT: Atraumatic, normocephalic. 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 Right eye is partially cloudy. Dry mucous membranes. NECK: Supple. CHEST: Significant lymphadenopathy changes in the right chest with edema on the right arm and the right breast, and Port-A-Cath on the left side. Bilateral air entry. HEART: Heart sounds are regular. ABDOMEN: Belly is soft and nontender. Good bowel sounds. Obese. No signs of peritonitis. EXTREMITIES: There is 1+ pedal edema in both legs. NEUROLOGIC: No obvious neurological deficits. INVESTIGATIONS: PT and INR are 10 and 1. Uric acid 8.2. No blood test reports from Dr. Perez's office. Waiting for PET scan. ASSESSMENT: An 86-year-old, white female admitted to the hospital with B symptoms, diffuse large cell B lymphoma, poorly differentiated, aggressive. Waiting for staging after PET scan. Admitted to the hospital with hypercalcemia. PLAN: 1. IV fluids with saline diuresis. 2. Hydration and allopurinol to prevent tumor lysis syndrome. Anticipating chemotherapy during the hospital. 3. History of DVT. INR is subtherapeutic. Initiate Lovenox 40 mg subcutaneous b.i.d. along with warfarin. 4. Reconcile home medications. We will follow up on the pending labs. Prognosis is grim. We will discuss with advanced directives at some point and consult with Dr. Perez. cc: Bassem Newman MD
[2017-01-05] MEDS: NS 1,000 ML IV SCH ×4 (04:38→16:50)
[2017-01-05 07:09] LABS: MANUAL DIFF NEEDED? NO
[2017-01-05 07:16] LABS: BASO% 0.3 % (0.0-0.8); EOS# 0.41 X1000 (0.0-0.7); EOS% 6.3 % (0.0-10.0); HEMOGLOBIN 9.7 g/dL (12.0-16.0); LYMPH# 1.37 X1000 (1.2-3.4); MCH 30.3 PG (27-31); MCHC 31.3 g/dL (33-37); MCV 96.9 FL (81-99); MONO% 13.8 % (1.7-9.3); MPV 11.6 FL (7.4-10.4); NEUT% 58.6 % (42.2-75.2); PLT 151 X1000 (130-400)
[2017-01-05 07:37] LABS: ALBUMIN 3.2 g/dL (3.5-5.0); POTASSIUM 4.5 mmol/L (3.5-5.1); TOTAL BILIRUBIN 0.34 mg/dL (0.20-1.00); TOTAL PROTEIN 5.7 g/dL (6.3-8.3)
[2017-01-05 07:41] LABS: CALCIUM 12.3 mg/dL (8.8-10.2)
[2017-01-05] MEDS: PRED FORTE 1% OPH SUSPENSION RIGHT EYE SCH ×3 (08:57→21:50)
[2017-01-05] MEDS ORDERED: LOVENOX SUBQ SCH (09:00)
[2017-01-05] MEDS ORDERED: ZYLOPRIM PO SCH ×2 (09:00→12:45)
[2017-01-05] MEDS: COMBIGAN OPHTH SOLN RIGHT EYE SCH ×2 (09:04→21:50)
[2017-01-05] MEDS: KEPPRA PO SCH ×2 (09:06→21:48)
[2017-01-05] MEDS: LOVENOX SUBQ SCH ×2 (09:07→21:49)
--- NOTE | 2017-01-05 11:16 | CONSULTATION ---
DATE OF CONSULTATION: 01/05/2017 REASON FOR CONSULTATION: The patient has diffuse large B-cell lymphoma. HISTORY OF PRESENT ILLNESS: This patient of ours with diffuse large B-cell lymphoma, came to our clinic on 01/04/2017 for follow up and review of PET scan. Her PET scan showed hypermetabolic activity in the chest wall, right neck, axilla, anterior mediastinum and internal mammary nodes consistent with her known lymphoma. The patient was found to be quite groggy and the family stated that it had started within the last 24-48 hours. We obtained some labs at our office, which revealed a calcium of 13.4 and a creatinine of 1.83. We gave her a dose of Xgeva in the clinic and had her go to the hospital for admission. She is already on allopurinol. We will continue that. She will need chemotherapy treatment during her hospitalization as she has aggressive B-cell lymphoma. Patient's calcium is down to 12.3 today, her creatinine is 1.7. REVIEW OF SYSTEMS: Negative unless indicated in the HPI. PAST MEDICAL HISTORY: Type 2 diabetes, history of complex partial seizures, systemic hypertension, prior DVT. She has an antithrombin 3 deficiency, diffuse large B -cell lymphoma. HOME MEDICATIONS: Simvastatin, aspirin, Keppra, hydroxyzine, Coumadin, allopurinol, lisinopril. ALLERGIES: Sulfa. FAMILY/SOCIAL HISTORY: Patient denies alcohol, illicit drug or tobacco use. She has good family social support. PHYSICAL EXAMINATION: Vital Signs are stable. Constitutional: female who is very groggy. HEENT: Head is atraumatic. Left eye legally blind. Mucous membranes are dry. Cardiovascular: S1-S2 audible to auscultation with no heaves, lifts, thrills. Pulmonary: Breath sounds clear to auscultation. Normal respiratory effort. Lymphatics: There are further lymph nodes in the neck and supraclavicular area that are rapidly enlarging. Abdomen : Soft, nondistended. Positive bowel sounds. Neurologic: No obvious neurologic deficit. ASSESSMENT AND PLAN: 1. Aggressive diffuse large B-cell lymphoma. Patient will require treatment during this hospitalization, likely Rituxan and Treanda. We will continue monitoring her counts closely. 2. Hypercalcemia. She received an Xgeva shot on 01/04/2017. She is on IV fluids and allopurinol. We will monitor for tumor lysis. 3. Tumor lysis prophylaxis. Allopurinol and IV fluids as above. 4. Renal insufficiency. Continue IV fluids. Hold lisinopril. 5. History of deep vein thrombosis. Patient's INR was subtherapeutic. She is on Lovenox and Coumadin. Dictated by HORACE Wolfe for Solo Perez MD cc: HORACE Wolfe MD Jagan Reddy, MD [facility]ITAL[facility]inth[facility]
[2017-01-05] MEDS ORDERED: ZYLOPRIM PO ONE (13:45)
--- NOTE | 2017-01-05 19:34 | PROGRESS NOTE ---
DATE: 01/05/2017 SUBJECTIVE: Patient was seen in the emergency room. Slowly improving. The patient had a PET scan done and PET did report hypermetabolic activity in the chest wall, right neck, axilla, anterior mediastinum, internal mammary nodes. Also, patient was given Xgeva. REVIEW OF SYSTEMS: Unable to obtain. Slightly improving. PHYSICAL EXAMINATION: Vital Signs: Afebrile. Vitals are stable. 5 feet 3 inches, 200 pounds. I's and O's positive 1100 mL. 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 Neck: Supple. Chest: Swelling in the right upper chest and right upper extremity has edema as well as the breast and chest is clear to auscultation. Heart: Sounds are regular. Abdomen: Belly is soft, nontender. Good bowel sounds. Extremities: Trace pedal edema noted. Neurologic: No obvious neurological deficits. LABORATORIES: CBC: White cell count 6, hematocrit 31, platelets 151. SMA-7: Creatinine is 1.7. Calcium 12.3, albumin 3.2. ASSESSMENT AND PLAN: 1. Altered mental status due to hypercalcemia. 2. Hypercalcemia. Patient was given Xgeva, followed by Forced saline diuresis. 3. Diffuse aggressive large B-cell lymphoma. Waiting for chemotherapy. 4. Tumor lysis prophylaxis. IV fluids and allopurinol. 5. Renal insufficiency. Creatinine 1.7. 6. History of deep vein thrombosis. INR is subtherapeutic. On Lovenox and Coumadin. 7. Discussed the plan of care with the family and waiting for bed placement in upstairs. LEVEL OF DOCUMENTATION: 35 minutes. cc: Bassem Newman MD MTDD
[2017-01-05] MEDS ORDERED: KEPPRA PO SCH (21:00)
[2017-01-05] MEDS: COUMADIN PO SCH (21:49)
[2017-01-06] MEDS: NS 1,000 ML IV SCH ×3 (01:30→17:00)
[2017-01-06] MEDS: PRED FORTE 1% OPH SUSPENSION RIGHT EYE SCH ×4 (04:27→20:57)
[2017-01-06 06:42] LABS: MANUAL DIFF NEEDED? NO
[2017-01-06 06:51] LABS: BASO% 0.5 % (0.0-0.8); EOS# 0.41 X1000 (0.0-0.7); EOS% 6.9 % (0.0-10.0); HEMOGLOBIN 9.8 g/dL (12.0-16.0); IMM GRAN# 0.03 X1000 (0.0-0.04); IMM GRAN% 0.5 % (0.0-0.5); LYMPH# 1.01 X1000 (1.2-3.4); LYMPH% 17.1 % (20.5-51.1); MCH 30.1 PG (27-31); MCHC 31.6 g/dL (33-37); MCV 95.1 FL (81-99); MONO# 0.79 X1000 (0.11-0.59); MONO% 13.3 % (1.7-9.3); MPV 11.7 FL (7.4-10.4); NEUT% 61.7 % (42.2-75.2); PLT 147 X1000 (130-400); RBC 3.26 XMIL (4.2-5.4)
[2017-01-06 06:55] LABS: INR 1.13
[2017-01-06 07:25] LABS: CALCIUM 11.2 mg/dL (8.8-10.2); POTASSIUM 4.2 mmol/L (3.5-5.1)
[2017-01-06] MEDS ORDERED: LASIX IV ONE ×2 (08:39→17:00)
[2017-01-06] MEDS ORDERED: NS 1,000 ML IV SCH (08:40)
[2017-01-06] MEDS: LOVENOX SUBQ SCH ×2 (09:22→21:18)
[2017-01-06] MEDS: ZYLOPRIM PO SCH (09:22)
[2017-01-06] MEDS: COMBIGAN OPHTH SOLN RIGHT EYE SCH ×2 (09:23→20:57)
[2017-01-06] MEDS: KEPPRA PO SCH ×2 (09:23→20:57)
[2017-01-06] MEDS: COUMADIN PO SCH (20:57)
--- NOTE | 2017-01-06 21:00 | PROGRESS NOTE ---
DATE: 01/06/2017 SUBJECTIVE: The patient is a little better. She is out of the bed. Complains of itching. Swelling of the right arm is better. No significant complaints other than itching. PHYSICAL EXAMINATION: Vital Signs: He is afebrile. Blood pressure is 140/50, 2 L nasal cannula 98%. Input and output -1600 mL. 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 Chest: Bilateral air entry. Heart: Sounds are regular. Abdomen: Belly is soft, obese, nontender. Good bowel sounds. Extremities: No peripheral edema, cyanosis. Neurologic: No obvious neurological deficits. INVESTIGATIONS: CBC: White cell count 5.9, hematocrit 32, platelet 147,000. PT 12, INR 1.13. SMA7: Creatinine is 1.4. Calcium 11.2. Uric acid 8.2. ASSESSMENT AND PLAN: 1. Chronic kidney disease, stable. 2. Hypercalcemia due to lymphoma, status post Xgeva and also forced saline diuresis, continue on IV fluids 125 an hour followed by Lasix. 3. 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 4. Glaucoma, stable on present drops. 5. Itching, Benadryl as needed. 6. Awaiting for chemotherapy as per Dr. Perez, and we will watch for the symptoms and signs of tumor lysis syndrome. Discussed the plan of care with the family. LEVEL OF DOCUMENTATION: 25 minutes. cc: Bassem Newman MD
[2017-01-07] MEDS: NS 1,000 ML IV SCH ×3 (01:39→18:24)
[2017-01-07] MEDS: PRED FORTE 1% OPH SUSPENSION RIGHT EYE SCH ×4 (03:30→21:22)
[2017-01-07 06:50] LABS: BASO% 0.4 % (0.0-0.8); EOS# 0.43 X1000 (0.0-0.7); EOS% 7.6 % (0.0-10.0); HEMATOCRIT 30.6 % (37.0-47.0); HEMOGLOBIN 9.5 g/dL (12.0-16.0); LYMPH# 1.17 X1000 (1.2-3.4); LYMPH% 20.7 % (20.5-51.1); MANUAL DIFF NEEDED? NO; MCH 29.5 PG (27-31); MONO# 0.85 X1000 (0.11-0.59); MONO% 15.1 % (1.7-9.3); MPV 12.2 FL (7.4-10.4); NEUT% 56.2 % (42.2-75.2); PLT 150 X1000 (130-400); RBC 3.22 XMIL (4.2-5.4)
[2017-01-07 06:54] LABS: INR 1.21; PROTIME 12.9 Seconds (9.2-11.7)
[2017-01-07 07:13] LABS: ALBUMIN 3.1 g/dL (3.5-5.0); CALCIUM 11.4 mg/dL (8.8-10.2); POTASSIUM 4.1 mmol/L (3.5-5.1); TOTAL BILIRUBIN 0.23 mg/dL (0.20-1.00); TOTAL PROTEIN 5.4 g/dL (6.3-8.3); URIC ACID 6.6 mg/dL (2.4-5.7)
[2017-01-07] MEDS: COMBIGAN OPHTH SOLN RIGHT EYE SCH ×2 (08:56→21:23)
[2017-01-07] MEDS: ZYLOPRIM PO SCH (08:57)
[2017-01-07] MEDS: KEPPRA PO SCH ×2 (08:57→21:21)
[2017-01-07] MEDS: LOVENOX SUBQ SCH ×2 (08:57→21:22)
[2017-01-07] MEDS ORDERED: LASIX IV ONE (10:00)
[2017-01-07] MEDS: NS IV SCH (12:33)
[2017-01-07] MEDS: ZOFRAN IV SCH (12:33)
[2017-01-07] MEDS: DECADRON IV SCH (12:33)
[2017-01-07] MEDS: CORTISPORIN OTIC SOLN BOTH EARS SCH ×2 (12:43→21:23)
[2017-01-07] MEDS: IN NS IV SCH (13:12)
[2017-01-07] MEDS: COUMADIN PO SCH (21:21)
--- NOTE | 2017-01-07 21:38 | PROGRESS NOTE ---
DATE: 01/07/2017 SUBJECT: The patient is doing a little better. Confused, out of the bed, waiting for chemotherapy . Substantial lymphadenopathy on the right side of the chest and complains of ear pains with external otitis. No other complaints. OBJECTIVE: Vital signs: On examination afebrile, pulse is 60, blood pressure 117/49, 99% on room air, I's and O's positive 690 mL. 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 Both tympanic membranes external auditory canal was inflamed. Neck: Supple. Chest: Significant lymphadenopathy on the right side of chest. Bilateral air entry. Heart: Sounds are regular. Belly: Is soft, nontender. Good bowel sounds. Extremities: No peripheral edema, cyanosis. Neuro: No obvious neurological deficits. INVESTIGATIONS: CBC, white cell count 5.6, hematocrit 30, platelets 150,000, PT 12, INR 1.2. SMA 7. Sodium 140, potassium 4.1, chloride 103, BUN 23, creatinine 1.4, uric acid 6.6, calcium 11.4. ASSESSMENT AND PLAN: 1. Poorly differentiated aggressive B-cell lymphoma. Waiting for chemotherapy. 2. Port-A-Cath on the left side. 3. Hypercalcemia status post Xgeva and saline diuresis. 4. Deep vein thrombosis. Continue on Lovenox and warfarin. 5. Glaucoma stable. 6. External otitis. Cortisporin drops and see the plan of care with Dr. Perez for chemotherapy. LEVEL OF DOCUMENTATION: 25 minutes. cc: Bassem Newman MD [facility]
[2017-01-08] MEDS: NS 1,000 ML IV SCH ×3 (02:07→23:33)
[2017-01-08] MEDS: PRED FORTE 1% OPH SUSPENSION RIGHT EYE SCH ×4 (03:20→20:53)
[2017-01-08 06:40] LABS: MANUAL DIFF NEEDED? NO
[2017-01-08 06:47] LABS: HEMATOCRIT 29.3 % (37.0-47.0); HEMOGLOBIN 9.3 g/dL (12.0-16.0); LYMPH# 0.78 X1000 (1.2-3.4); LYMPH% 12.2 % (20.5-51.1); MCH 29.7 PG (27-31); MCHC 31.7 g/dL (33-37); MCV 93.6 FL (81-99); MONO# 0.38 X1000 (0.11-0.59); MONO% 5.9 % (1.7-9.3); MPV 11.9 FL (7.4-10.4); NEUT% 81.9 % (42.2-75.2); PLT 159 X1000 (130-400); RBC 3.13 XMIL (4.2-5.4)
[2017-01-08 06:53] LABS: INR 1.31
[2017-01-08 07:23] LABS: ALBUMIN 3.2 g/dL (3.5-5.0); CALCIUM 10.9 mg/dL (8.8-10.2); POTASSIUM 4.2 mmol/L (3.5-5.1); TOTAL BILIRUBIN 0.1 mg/dL (0.20-1.00); TOTAL PROTEIN 5.5 g/dL (6.3-8.3)
[2017-01-08] MEDS: ZYLOPRIM PO SCH (10:07)
[2017-01-08] MEDS: LOVENOX SUBQ SCH ×2 (10:08→20:46)
[2017-01-08] MEDS: KEPPRA PO SCH ×2 (10:08→20:46)
[2017-01-08] MEDS: CORTISPORIN OTIC SOLN BOTH EARS SCH ×3 (10:08→17:10)
[2017-01-08] MEDS: COMBIGAN OPHTH SOLN RIGHT EYE SCH ×2 (10:09→20:53)
[2017-01-08] MEDS ORDERED: TYLENOL PO ONE (11:00)
--- NOTE | 2017-01-08 11:18 | PROGRESS NOTE ---
DATE: 01/08/2017 SUBJECTIVE: The patient is sleeping. Browne was out. Had 1st chemo done yesterday. No complaints. Complains of ears are hurting. REVIEW OF SYSTEMS: Rest of the review of systems are normal. OBJECTIVE: vital signs: Afebrile. Vitals are stable, 98%. I's and O's are even. HEENT: Stable. Chest: Decrease the swelling in the right upper chest. Cardiovascular: Heart sounds are regular. Abdomen: Belly is soft, nontender. Good bowel sounds. Extremities: No peripheral edema, cyanosis. Neurologic: No obvious neurological deficits. INVESTIGATIONS: CBC: White cell count 6.4, hematocrit 29, platelets 159,000. PT 14, INR 1.3. SMA 7: Sodium 143, potassium 4.2, chloride 103, BUN 25, creatinine 1.5, glucose 191, calcium 10.9. LFTs were normal. ASSESSMENT AND PLAN: 1. Diffuse large cell lymphoma status post chemotherapy. 2. Tumor lysis syndrome. Prophylaxis IV fluids and allopurinol. Stable electrolytes. 3. Glaucoma, stable. 4. Deep vein thrombosis. Continue on Lovenox with warfarin. 5. External otitis. On Cortisporin drops. 6. Continue the chemotherapy as per Dr. Perez. LEVEL OF DOCUMENTATION: 25 minutes. cc: Bassem Newman MD
[2017-01-08] MEDS ORDERED: NS IV ONE ×2 (11:20→12:00)
[2017-01-08] MEDS ORDERED: PEPCID IV ONE (11:20)
[2017-01-08] MEDS ORDERED: RITUXAN IV ONE (12:00)
[2017-01-08] MEDS: DECADRON IV SCH (13:49)
[2017-01-08] MEDS: NS IV SCH (13:49)
[2017-01-08] MEDS: ZOFRAN IV SCH (13:49)
[2017-01-08] MEDS: IN NS IV SCH (14:14)
[2017-01-08] MEDS: COUMADIN PO SCH (20:46)
[2017-01-09 06:52] LABS: AGAP 8; ALBUMIN 2.9 g/dL (3.5-5.0); ALKALINE PHOSPHATASE 70 U/L (32-104); BUN 27 mg/dL (8-22); CALCIUM 10.7 mg/dL (8.8-10.2); CHLORIDE 104 mmol/L (98-107); COSMO 287; GOT 32 U/L (10-30); GPT 26 U/L (10-36); POTASSIUM 4.5 mmol/L (3.5-5.1); SODIUM 139 mmol/L (136-145); TCO2 27 mmol/L (25-35); TOTAL BILIRUBIN < 0.10 mg/dL (0.20-1.00); TOTAL PROTEIN 5.1 g/dL (6.3-8.3)
[2017-01-09 07:12] LABS: HEMATOCRIT 28.6 % (37.0-47.0); HEMOGLOBIN 8.9 g/dL (12.0-16.0); IMM GRAN# 0.02 X1000 (0.0-0.04); IMM GRAN% 0.3 % (0.0-0.5); LYMPH# 0.49 X1000 (1.2-3.4); LYMPH% 6.4 % (20.5-51.1); MANUAL DIFF NEEDED? YES; MCH 29.1 PG (27-31); MCHC 31.1 g/dL (33-37); MCV 93.5 FL (81-99); MONO# 0.43 X1000 (0.11-0.59); MONO% 5.6 % (1.7-9.3); MPV 11.5 FL (7.4-10.4); NEUT% 87.7 % (42.2-75.2); PLT 145 X1000 (130-400); RBC 3.06 XMIL (4.2-5.4)
[2017-01-09 07:56] LABS: BANDS 8 % (0-1); LYMPHS 6 % (21-51); MONO 6 % (1-9)
[2017-01-09] MEDS: NS 1,000 ML IV SCH ×3 (08:16→16:05)
[2017-01-09] MEDS: PRED FORTE 1% OPH SUSPENSION RIGHT EYE SCH ×3 (08:17→22:06)
[2017-01-09] MEDS: CORTISPORIN OTIC SOLN BOTH EARS SCH ×3 (08:17→16:05)
[2017-01-09] MEDS: ZYLOPRIM PO SCH (08:18)
[2017-01-09] MEDS: KEPPRA PO SCH ×2 (08:18→22:04)
[2017-01-09] MEDS: LOVENOX SUBQ SCH ×2 (08:18→22:05)
[2017-01-09] MEDS: COMBIGAN OPHTH SOLN RIGHT EYE SCH ×2 (08:18→22:07)
[2017-01-09] MEDS ORDERED: BLISTEX MEDICATED BERRY LIP BALM TOP PRN (09:42)
--- NOTE | 2017-01-09 13:24 | PROGRESS NOTE ---
DATE: 01/09/2017 SUBJECT: Patient had chemotherapy done by Dr. Perez and tolerated very well. No complaints. REVIEW OF SYSTEMS: None reported. EXAMINATION: Temperature is 97, pulse is 60, blood pressure is 164/51, 2 L nasal cannula 98%.HEENT Exam: Left eye is completely opacified. Neck: Supple. Chest: Decrease lymph nodes in the right side of chest and bilateral air entry. Heart: Sounds are regular. Belly: Soft, nontender. Good bowel sounds. Neuro: No obvious neurological deficits. LABORATORIES: CBC, white cell count 7.6, hematocrit 28, platelets 145,000. SMA 7, sodium 139, potassium 4.5, chloride 104, BUN 27, creatinine 1.5, glucose 174, calcium 10.7. LFTs were normal. ASSESSMENT AND PLAN: 1. Diffuse large cell B-cell lymphoma status post chemotherapy by Dr. Perez. 2. Dermolysis syndrome so far stable. 3. Hypercalcemia is improving. 4. Chronic kidney disease stable next . 5. Will watch for the pancytopenia from the chemotherapy. If the white cell goes down will initiate Neupogen 480 mcg once daily. 6. Out of the bed with physical therapy and closely monitoring electrolytes and CBC on a daily basis. 7. History of deep vein thrombosis on warfarin and Lovenox. Will check the PT/INR in the morning. LEVEL OF DOCUMENTATION: 25 minutes. cc: Bassem Newman MD
[2017-01-09] MEDS: COUMADIN PO SCH (22:04)
[2017-01-10] MEDS: NS 1,000 ML IV SCH ×2 (00:15→08:58)
[2017-01-10] MEDS: PRED FORTE 1% OPH SUSPENSION RIGHT EYE SCH ×4 (03:58→21:23)
[2017-01-10 06:49] LABS: MANUAL DIFF NEEDED? NO
[2017-01-10 07:21] LABS: BASO% 0.3 % (0.0-0.8); EOS# 0.08 X1000 (0.0-0.7); EOS% 1.2 % (0.0-10.0); HEMATOCRIT 28.3 % (37.0-47.0); HEMOGLOBIN 8.8 g/dL (12.0-16.0); IMM GRAN# 0.02 X1000 (0.0-0.04); IMM GRAN% 0.3 % (0.0-0.5); LYMPH# 0.62 X1000 (1.2-3.4); LYMPH% 9.2 % (20.5-51.1); MCH 29.5 PG (27-31); MCHC 31.1 g/dL (33-37); MONO# 0.98 X1000 (0.11-0.59); MONO% 14.6 % (1.7-9.3); MPV 11.8 FL (7.4-10.4); NEUT% 74.4 % (42.2-75.2); PLT 149 X1000 (130-400); RBC 2.98 XMIL (4.2-5.4)
[2017-01-10 07:22] LABS: INR 1.75
[2017-01-10 07:47] LABS: ALBUMIN 2.8 g/dL (3.5-5.0); POTASSIUM 4.4 mmol/L (3.5-5.1); TOTAL BILIRUBIN 0.14 mg/dL (0.20-1.00); TOTAL PROTEIN 4.8 g/dL (6.3-8.3)
[2017-01-10] MEDS: ZYLOPRIM PO SCH (08:58)
[2017-01-10] MEDS: LOVENOX SUBQ SCH ×2 (08:58→21:06)
[2017-01-10] MEDS: MIRALAX PO PRN (08:58)
[2017-01-10] MEDS: KEPPRA PO SCH ×2 (08:58→21:06)
[2017-01-10] MEDS ORDERED: LASIX IV SCH (09:00)
[2017-01-10] MEDS: CORTISPORIN OTIC SOLN BOTH EARS SCH ×3 (09:01→16:45)
[2017-01-10] MEDS: COMBIGAN OPHTH SOLN RIGHT EYE SCH ×2 (09:01→21:23)
--- NOTE | 2017-01-10 19:19 | PROGRESS NOTE ---
DATE: 01/10/2017 SUBJECTIVE: The patient is doing very well after chemotherapy, out of the bed and swelling is much improved on the right upper extremity and right side of the lymph nodes. REVIEW OF SYSTEMS: None reported. EXAMINATION: Temperature is 97 degrees, pulse is 60, blood pressure is 150/74. Ins and outs -200 mL. HEENT Exam: Left eye is blind and decreased swelling and lymph nodes on the right side of the neck and the chest as well as edema in the right upper extremity. Chest: Clear. Heart: Sounds are regular. Abdomen: Belly is soft, nontender. Good bowel sounds. No obvious neurological deficits. INVESTIGATIONS: CBC: White cell count 6.7, hematocrit 28, platelets 149,000. PT 19. INR 1.75. SMA 7: Sodium 140, potassium 4.4, chloride 108, BUN 32, creatinine 1.4. LFTs are normal. ASSESSMENT AND PLAN: 1. Non-Hodgkin's lymphoma, B-cell aggressive status post chemo stable. 2. Tumor lysis syndrome. Prophylaxis stable. 3. Hypercalcemia improving. 4. Chronic kidney disease. Stable. 5. Deep vein thrombosis. Decrease the Lovenox once daily along with Coumadin. 6. Out of the bed with physical therapy and no evidence of pancytopenia. Level of documentation is 25 minutes. cc: Bassem Newman MD
[2017-01-10] MEDS: COUMADIN PO SCH (21:06)
[2017-01-11] MEDS: PRED FORTE 1% OPH SUSPENSION RIGHT EYE SCH ×4 (02:50→23:17)
[2017-01-11] MEDS: NS 1,000 ML IV SCH (04:14)
[2017-01-11 06:10] LABS: MANUAL DIFF NEEDED? NO
[2017-01-11 06:13] LABS: BASO% 0.5 % (0.0-0.8); EOS# 0.31 X1000 (0.0-0.7); EOS% 5.4 % (0.0-10.0); HEMATOCRIT 29.2 % (37.0-47.0); HEMOGLOBIN 9.1 g/dL (12.0-16.0); IMM GRAN# 0.02 X1000 (0.0-0.04); IMM GRAN% 0.3 % (0.0-0.5); LYMPH# 0.83 X1000 (1.2-3.4); LYMPH% 14.3 % (20.5-51.1); MCH 29.5 PG (27-31); MCHC 31.2 g/dL (33-37); MCV 94.8 FL (81-99); MONO# 0.75 X1000 (0.11-0.59); MPV 11.6 FL (7.4-10.4); NEUT% 66.5 % (42.2-75.2); PLT 160 X1000 (130-400); RBC 3.08 XMIL (4.2-5.4)
[2017-01-11 06:20] LABS: INR 1.65; PROTIME 17.9 Seconds (9.2-11.7)
[2017-01-11 06:32] LABS: ALBUMIN 2.8 g/dL (3.5-5.0); CALCIUM 10.6 mg/dL (8.8-10.2); POTASSIUM 4.8 mmol/L (3.5-5.1); TOTAL BILIRUBIN 0.22 mg/dL (0.20-1.00); TOTAL PROTEIN 5.1 g/dL (6.3-8.3)
[2017-01-11] MEDS: ZYLOPRIM PO SCH (09:59)
[2017-01-11] MEDS: KEPPRA PO SCH ×2 (09:59→21:14)
[2017-01-11] MEDS: LOVENOX SUBQ SCH (09:59)
[2017-01-11] MEDS: COMBIGAN OPHTH SOLN RIGHT EYE SCH ×2 (10:00→23:16)
[2017-01-11] MEDS: CORTISPORIN OTIC SOLN BOTH EARS SCH ×3 (10:00→23:17)
[2017-01-11] MEDS: GRANIX SUBQ SCH (14:44)
--- NOTE | 2017-01-11 21:00 | PROGRESS NOTE ---
DATE: 01/11/2017 SUBJECT: Patient is doing very well out of the bed slightly chills and itching. Rest of review of systems are normal. OBJECTIVE: Vital signs: Temperature is 97 degrees, pulse is 78, blood pressure is 150/57, 95% on room air. HEENT Exam: Left eye is opacified, decreased swelling on the right side of the chest as well edema of the right arm. Chest: Clear. Heart: Sounds are regular. Belly: Soft, nontender. Good bowel sounds. No masses palpable. Extremities: No peripheral edema, cyanosis. Neuro: No obvious neurological deficits. INVESTIGATIONS: CBC, white cell count 5.7, hematocrit 29, platelet 160,000. PT 17.9, INR 1.65. SMA 7 sodium 144, potassium 4.8, chloride 109, BUN 32, creatinine 1.5, glucose 83, calcium 10.6. LFTs were normal. ASSESSMENT AND PLAN: 1. Diffuse large-cell lymphoma non-Hodgkin status post chemo improving clinically. 2. No signs of tumor lysis syndrome. 3. Hypercalcemia improving. 4. Chronic kidney disease, stable. Discontinue IV fluids. 5. Impending pancytopenia, white cell count dropping 5. As per Dr. Perez will initiate Granix 1 dose. 6. Deep vein thrombosis. INR is 1.7. Decrease Lovenox once a day along with warfarin, if she is stable will be discharged in the morning. LEVEL OF DOCUMENTATION: 25 minutes. cc: Bassem Newman MD MTDD
[2017-01-11] MEDS: COUMADIN PO SCH (21:14)
[2017-01-12 05:34] VITALS: BP 158/61
[2017-01-12 06:10] LABS: INR 1.56; PROTIME 16.8 Seconds (9.2-11.7)
[2017-01-12] MEDS: ZYLOPRIM PO SCH (09:24)
[2017-01-12] MEDS: CORTISPORIN OTIC SOLN BOTH EARS SCH (09:24)
[2017-01-12] MEDS: KEPPRA PO SCH (09:24)
[2017-01-12] MEDS: GRANIX SUBQ SCH (09:24)
[2017-01-12] MEDS: PRED FORTE 1% OPH SUSPENSION RIGHT EYE SCH (09:24)
[2017-01-12] MEDS: LOVENOX SUBQ SCH (09:24)
[2017-01-12] MEDS: MIRALAX PO PRN (09:24)
[2017-01-12] MEDS: COMBIGAN OPHTH SOLN RIGHT EYE SCH (09:24)
--- NOTE | 2017-01-12 19:12 | DISCHARGE SUMMARY ---
ADMISSION DATE: 01/04/2017 DISCHARGE DATE: 01/12/2017 DISCHARGING DIAGNOSIS: Altered mental status due to metabolic encephalopathy due to hypercalcemia and dehydration. SECONDARY DIAGNOSES: 1. Diffuse non-Hodgkin's lymphoma, B-cell. 2. Asymptomatic gallstones. 3. Type 2 diabetes. 4. History of complex partial seizure. 5. Hypertension. 6. Glaucoma. 7. 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 8. Metabolic syndrome. 9. Scoliosis of thoracolumbar spine. 10. History of bilateral shoulder fracture. 11. History of deep vein thrombosis due to antithrombin 3 deficiency. CONSULTS: Dr. Perez. PROCEDURES: Chemotherapy x 2. Neupogen 480 mcg subcutaneous 1 time. BRIEF HISTORY: Please see the H and P that was done on 01/04/2017. In brief, she is an 86-year- old white female, recently diagnosed diffuse large B-cell lymphoma associated with hypercalcemia, status post port on the left side, readmitted by Dr. Perez for altered mental status, dehydration and hypercalcemia. The patient was given Xgeva prior to the admission. She was started on allopurinol. HOSPITAL COURSE: She was given IV fluids, with forced saline diuresis and follow up uric acid levels and calcium levels coming back to normal. She was given tumor lysis syndrome prophylaxis with allopurinol IV hydration prior to chemotherapy. The patient did tolerate chemo very well. Patient had significant improvement of swelling on the right side of the chest. Post chemotherapy patient is much improved eating very well. Initially INR was subtherapeutic. It was covered with combination of Lovenox for bridging along with Coumadin. Patient is ambulating well without any complaints. LABORATORIES: At the time of discharge, as follows. CBC: White cell count 5.7, hematocrit 29, platelets 160,000. PT 16.8, INR 1.6. SMA 7: Sodium 144, potassium 4.8, chloride 109, BUN 32, creatinine 1.5, uric acid 6.0, calcium 10.6. LFTs were normal. DISCHARGE INSTRUCTIONS: Follow up with Dr. Mcgarry next week. Aspirin 325 daily, prednisone 40 suspension 1 drop 4 times daily, simvastatin 20 daily, lisinopril 5 daily, Combigan drop twice daily, Keppra 500 in the morning, 750 at night, warfarin 5 mg daily, allopurinol 100 mg daily, hydroxyzine 25 t.i.d. for p.r.n. itching. cc: MD Solo Zaragoza MD
== END 2017-01-12 11:08 | disposition home health service (06) ==
LOC: EDIPHOLD 19:42 → 3N 01-05 16:55
PROVIDERS: ADMIT Internal Medicine; ATTEND Internal Medicine

== ENCOUNTER 2018-12-26 12:09 | Observation (INO) ==
--- NOTE | 2018-12-26 17:07 | EKG Report ---
Test Performed on : 12/26/2018 5:01:13 PM Test Reason : chest pain Blood Pressure : / mmHG Vent. Rate : 064 BPM Atrial Rate : 064 BPM P-R Int : 272 ms QRS Dur : 100 ms QT Int : 388 ms P-R-T Axes : 036 -15 036 degrees QTc Int : 400 ms Sinus rhythm. with 1st degree AV block. Left ventricular hypertrophy with repolarization abnormality Anteroseptal infarct (cited on or before 21-MAY-2017) Abnormal ECG When compared with ECG of 21-DEC-2018 08:18, No significant change was found Confirmed by Candis BARRETO, Kee Ruffin ([id number]) on 12/28/2018 8:05:21 PM
[2018-12-26 17:38] LABS: ALLEN TEST YES; BE 4.4 mmoll (-3.0-3.0); BLOOD TYPE ARTERIAL; HCO3-(ACT) 28.2 mmoll (20.0-26.0); MODALITY ROOM AIR; O2(CT) 17.8 mL/dL (15.0-23.0); O2HB 92.5 % (95.0-99.0); PCO2(98.6) 43 mmHg (35-45); PO2(98.6) 60 mmHg (60-100); SAMPLE BLOOD; SAO2 95.7 % (95.0-100.0); THB 13.7 g/dL (11.5-17.4); pH(98.6) 7.44 (7.35-7.45)
[2018-12-26 17:52] LABS: INR 1.03; PROTIME 13.7 Seconds (11.0-16.0)
--- NOTE | 2018-12-26 18:13 | Diag Imaging Result Doc PS360 ---
EXAM: CHEST-2 VIEWS 12/26/2018 HISTORY: SOB TECHNIQUE: PA and lateral chest COMMENT: The inspiration is suboptimal. Compared to 04/29/2018 there has been no significant change considering differences in inspiration. IMPRESSION: Stable chest. Electronically signed by Brian Hutchins 12/26/2018 6:11 PM
[2018-12-26] MEDS ORDERED: APRESOLINE IV PRN (19:06)
[2018-12-26] MEDS: KEPPRA PO SCH ×2 (19:22→22:31)
--- NOTE | 2018-12-26 21:34 | HISTORY AND PHYSICAL ---
CHIEF COMPLAINT: Dizziness, confusion, elevated blood pressure, 220/90. HISTORY OF PRESENT ILLNESS: She is an 88-year-old, white female, recently diagnosed hypercalcemia due to right inferior parathyroid adenoma, scheduled for parathyroidectomy by Dr. Aj tomorrow. In the meantime, for the last 2 days, the patient has dwindling of daily activities, elevated blood pressures. Obviously, patient stopped taking blood pressure medicine by Dr. Perez a year and a half ago. The patient denies of any chest pain, shortness of breath, PND, orthopnea. I have given a dose of hydralazine in the ER. I spoke to the family as well as Dr. Aj, and control of the blood pressure before the surgery. As a result, hospital admission was warranted. PAST MEDICAL HISTORY: History of asymptomatic gallstones, depression, type 2 diabetes, history of complex partial seizures, hypertension, glaucoma, shingles on the right S2, hypercalcemia due to right inferior parathyroid adenoma, bilaterally legally blind, band keratopathy due to hypercalcemia, non-Hodgkin's lymphoma, CAD, obesity, thoracolumbar scoliosis, history of DVT in the left leg due to antithrombin deficiency, off anticoagulation by Dr. Perez. PAST SURGICAL HISTORY: Cataract surgery bilaterally, left partial eye transplant, right partial eye transplant, bypass surgery, breast lumpectomy, bilateral shoulder fractures, carotid endarterectomy on the left side by Dr. Aj. MEDICATIONS: Aspirin 325 daily, Prilosec 20 daily, Combigan drops, Keppra 500 in the morning and 750 in the evening, Lasix 20 mg daily, Neurontin 300 mg twice daily, simvastatin 20 daily, vitamin D 50,000 once a week. The patient was taking lisinopril before for blood pressure, which he stopped. ALLERGIES: Sulfa drugs. SOCIAL HISTORY: . Three children. No smoking. No alcohol. FAMILY HISTORY: Father of stroke at 62. Mom of CHF. HEALTH MAINTENANCE: Pneumococcal vaccine 2018, last mammography 2018. CODE STATUS: Living will, Do Not Resuscitate. REVIEW OF SYSTEMS: HEENT: Legally blind, declining of activities. No nausea. No headache. No neck pain. Left carotid surgery. No goiter. No adenopathy. Cardiopulmonary: No chest pain, shortness of breath, PND, orthopnea. Gastrointestinal: No nausea, vomiting, abdominal pain. Genitourinary: No history of hesitancy, frequency, dysuria. No swelling of legs. History of DVT in the left leg. No neurological symptoms or weakness. PHYSICAL EXAMINATION: VITAL SIGNS: In the ER, blood pressure 220/90, afebrile. Five feet 4 inches, 164 pounds. HEENT: Bilaterally legally blind. Atraumatic, normocephalic. NECK: Supple. No lymphadenopathy. CHEST: Clear. CARDIOVASCULAR: Heart sounds are regular. GASTROINTESTINAL: Belly is soft, nontender. Good bowel sounds. EXTREMITIES: No peripheral edema. NEUROLOGIC: No obvious neurological deficits. INVESTIGATIONS: PT 13, INR 1.0. ABG: PH is 7.44, pCO2 of 43, PO2 of 60. Cardiac enzymes and ProBNP were normal. Chest x-ray: Stable. EKG: Normal sinus, first-degree AV block, nothing acute. ASSESSMENT/PLAN: 1. An 88-year-old, white female, admitted to the hospital, basically hypercalcemia due to right inferior parathyroid adenoma, scheduled for surgery tomorrow by Dr. Aj. 2. Preoperative workup. Hypertension, used to be on lisinopril. We will use the hydralazine as needed. 3. Prior history of deep vein thrombosis in the left leg. Off the anticoagulation. Will need perioperative anticoagulation. Also, watchful for hungry bone syndrome. 4. Physical Therapy consult. 5. History of complex partial seizures, on Keppra 750 daily. 6. Chronic pain, shingles, on Neurontin. 7. Hyperlipidemia, on Zocor. 8. Glaucoma, restart the drops. 9. Vitamin D deficiency, on replacement therapy. 10. Constipation, on MiraLAX. 11. Diet is cardiac healthy diet. I spoke to the family as well as Dr. Aj. We will follow up. cc: Bassem Newman MD [facility]
[2018-12-26] MEDS: ZOCOR PO SCH (22:26)
[2018-12-26] MEDS: NEURONTIN PO SCH (22:26)
[2018-12-26] MEDS: COMBIGAN OPHTH SOLN BOTH EYES SCH (22:32)
[2018-12-27 05:21] LABS: URINE SOURCE CLEAN CATCH
[2018-12-27 05:23] LABS: BILIRUBIN URINE NEGATIVE (NEGATIVE); BLOOD URINE NEGATIVE (NEGATIVE); COLOR YELLOW; GLUCOSE URINE NEGATIVE (NEGATIVE); KETONE URINE NEGATIVE (NEGATIVE); LEUKOCYTES URINE MODERATE (NEGATIVE); NITRITE URINE NEGATIVE (NEGATIVE); PROTEIN URINE NEGATIVE (NEGATIVE); SP GRAVITY URINE 1.015; TURBIDITY URINE CLEAR (CLEAR); UROBILINOGEN URINE NORMAL (NORMAL)
[2018-12-27 05:28] LABS: UR EPITHELIAL CELLS <10 /HPF (<10); URINE BACTERIA NEGATIVE /HPF; URINE RBC <10 /HPF (<10)
[2018-12-27] MEDS: KEPPRA PO SCH ×5 (06:26→23:50)
[2018-12-27] MEDS ORDERED: SENSORCAINE 0.25%/EPI 1:200,000 ONE (06:28)
[2018-12-27] MEDS ORDERED: KEFZOL 1 GM/D5W 1 GM/50 ML IVPB ONE (06:57)
[2018-12-27] MEDS ORDERED: LR 1,000 ML ONE (08:18)
--- NOTE | 2018-12-27 08:21 | OPERATIVE NOTE ---
PROCEDURE DATE: 12/27/2018 PROCEDURE: Parathyroidectomy (removal of right inferior adenoma). SURGEON: Stevan Aj M.D. [employer] ENGINEER: Dr. Sosa. PREOPERATIVE DIAGNOSIS: Primary hyperparathyroidism. POSTOPERATIVE DIAGNOSIS: Primary hyperparathyroidism secondary to a right inferior adenoma. INDICATIONS: An 88-year-old with hypercalcemia. Parathyroid scan suggested a right-sided adenoma. DESCRIPTION OF PROCEDURE: Satisfactory general endotracheal anesthesia was achieved. The patient was placed in gentle reverse Trendelenburg position. The head was turned to the left slightly. The anterior neck was prepped and draped in a sterile fashion. We marked the skin from midline laterally a fingerbreadth above the sternal notch/ We anesthetized the skin with 0.25 Marcaine with epinephrine, and made a transverse incision that went for 5 cm. We then went through the platysma. We developed a subplatysmal plane superiorly and inferiorly. A Gelpi retractor was placed. We then pulled the sternocleidomastoid muscle over to the right, identified the internal jugular vein, and then shemar a parathyroid level. This would be identified as the pre-excision level. We then divided the cervical fascia in the midline, exposed the right lobe of the thyroid gland. We retracted the strap muscles to the right, exposing the right lobe of the thyroid, and then dissected inferiorly and laterally, and exposed a gland that appeared to be the parathyroid adenoma. We gently dissected the tissue from around the gland, clamped off the feeding artery, and suture ligated it with a 4-0 silk suture ligature. We excised the gland in toto, measured it 2 x 1.5 x 0.8 cm. We waited 10 minutes, and then shemar another post PTH from the internal jugular vein in the same place that we had drawn the first one. This was 10 minutes after excision. We were satisfied that this was an adenoma based on its appearance, based on its location. Hemostasis was satisfactory. We then proceeded to close the cervical fascia in the midline with 3- 0 Polysorb. We closed the platysma with 3-0 Polysorb simple stitches. We once again injected 0.25 Marcaine with epinephrine, and then closed the skin with a 4-0 Polysorb subcuticular stitch. Telfa and a sterile OpSite was applied. She tolerated it well, and was sent to the recovery room in satisfactory condition. cc: MD Bassem Ho MD
[2018-12-27] MEDS: DILAUDID ONE ×3 (08:46→08:53)
[2018-12-27] MEDS ORDERED: NORCO-10 PO PRN (09:23)
[2018-12-27] MEDS: PRED FORTE 1% OPH SUSPENSION OPH SCH ×2 (10:22→20:56)
[2018-12-27] MEDS: MIRALAX PO SCH (10:22)
[2018-12-27] MEDS: COMBIGAN OPHTH SOLN BOTH EYES SCH ×3 (10:22→23:49)
[2018-12-27] MEDS: CULTURELLE PO SCH (10:23)
[2018-12-27] MEDS: LASIX PO SCH (10:23)
[2018-12-27] MEDS: PERIDEX MT SCH ×2 (19:50→23:50)
[2018-12-27] MEDS: NEURONTIN PO SCH ×2 (19:51→23:50)
[2018-12-27] MEDS: ZOCOR PO SCH ×2 (19:51→23:50)
--- NOTE | 2018-12-27 20:09 | GENERAL SURGERY PROGRESS NOTE ---
DATE: 12/27/2018 Ms. Cuello is doing well this afternoon. She is awake and alert. She has some ecchymosis from her wound but no hematoma of significance. Her trachea is in the midline. She seems comfortable. We will check her calcium in the morning. [place] sign is negative. cc: MD Bassem Ho MD
--- NOTE | 2018-12-27 21:10 | PROGRESS NOTE ---
DATE: 12/27/2018 SUBJECTIVE: The patient had a parathyroidectomy on the right side by Dr. Aj. Blood pressure is doing very well. Before, her parathormone level was 1300, after surgery 38. Blood pressure is doing very well. She used to take lisinopril, but that was stopped, and currently is running very well. Continue to monitor. REVIEW OF SYSTEMS: None reported. PHYSICAL EXAM: Vital Signs: Temperature is 97. Vitals are stable. HEENT: Bilaterally legally blind. Chest: Clear. Cardiovascular: Heart sounds are regular. Abdomen: Belly is soft, nontender. No obvious deficits. INVESTIGATIONS: CK and troponin were normal. ASSESSMENT AND PLAN: 1. Hypertension. Off the pills, stable. 2. Status post parathyroidectomy. We will check the calcium level and watch for hungry bone syndrome. Out of bed with physical therapy. Continue present treatment. Spoke to the family. They want to take her home with outpatient home health care. I appreciate Dr. Aj consulting me. cc: Bassem Newman MD
[2018-12-28] MEDS: KEPPRA PO SCH ×5 (05:53→21:00)
[2018-12-28 08:04] LABS: CALCIUM 9.4 mg/dL (8.8-10.2); CREATININE 1.2 mg/dL (0.5-0.9); POTASSIUM 3.9 mmol/L (3.5-5.1)
[2018-12-28] MEDS: COMBIGAN OPHTH SOLN BOTH EYES SCH ×2 (08:33→21:01)
[2018-12-28] MEDS: PRED FORTE 1% OPH SUSPENSION OPH SCH ×2 (08:33→21:01)
[2018-12-28] MEDS: PERIDEX MT SCH ×2 (08:33→21:00)
[2018-12-28] MEDS: MIRALAX PO SCH (08:34)
[2018-12-28] MEDS: LASIX PO SCH (08:34)
[2018-12-28] MEDS: CULTURELLE PO SCH (08:34)
[2018-12-28] MEDS: TEARISOL OPH SOLUTION OPH SCH ×4 (13:26→21:01)
--- NOTE | 2018-12-28 20:26 | GENERAL SURGERY PROGRESS NOTE ---
DATE: 12/28/2018 Ms. Cuello is without fever, and she has good hemodynamics. Her trachea is in the midline. The swelling in her neck is less. Her calcium today he is 9.4. I am pleased with her progress. I think she could be discharged in the morning without problem. cc: MD Bassem Ho MD
[2018-12-28] MEDS: NEURONTIN PO SCH (21:00)
[2018-12-28] MEDS: ZOCOR PO SCH (21:00)
--- NOTE | 2018-12-28 21:50 | PROGRESS NOTE ---
DATE: 12/28/2018 SUBJECTIVE: The patient is doing better. Appreciate Dr. Aj's consult. Blood pressure is not running high. Vitals are stable and no complaints. Physical exam: No change. INVESTIGATIONS: Sodium 140, potassium 3.9, chloride 102, BUN 34, creatinine 1.2, glucose 155. PTH is decreased to 38. ASSESSMENT AND PLAN: 1. 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 2. Out of the bed with physical therapy. 3. No symptoms and signs of tetany noted and discussed with the family. We will discharge in the morning with outpatient home health care. 4. Hypertension is stable. LEVEL OF DOCUMENTATION: 25 minutes. cc: Bassem Newman MD
[2018-12-29] MEDS: KEPPRA PO SCH (06:27)
[2018-12-29 07:25] VITALS: BP 113/42
[2018-12-29] MEDS ORDERED: VITAMIN D PO SCH (09:00)
[2018-12-29] MEDS: PRED FORTE 1% OPH SUSPENSION OPH SCH (10:31)
[2018-12-29] MEDS: COMBIGAN OPHTH SOLN BOTH EYES SCH (10:31)
[2018-12-29] MEDS: CULTURELLE PO SCH (10:32)
[2018-12-29] MEDS: PERIDEX MT SCH (10:33)
[2018-12-29] MEDS: LASIX PO SCH (10:33)
[2018-12-29] MEDS: MIRALAX PO SCH (10:34)
--- NOTE | 2018-12-29 13:11 | GENERAL SURGERY PROGRESS NOTE ---
DATE: 12/29/2018 Ms. Cuello is doing well. Her wound looks good. The plan is for her to be discharged. We removed her bandage. We discussed wound care. She will return to see me in the office in a week. She will use Tylenol for pain. cc: MD Bassem Ho MD
--- NOTE | 2018-12-30 14:37 | DISCHARGE SUMMARY ---
ADMISSION DATE: 12/26/2018 DISCHARGE DATE: 12/29/2018 DISCHARGING DIAGNOSIS: Dizziness, mental confusion due to hypercalcemia due to right inferior parathyroid adenoma. SECONDARY DIAGNOSES: 1. Asymptomatic gallstones. 2. Depression. 3. Type 2 diabetes. 4. History of complex partial seizures. 5. Hypertension off medication. 6. Glaucoma. 7. 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 8. Non-Hodgkin's lymphoma in remission. 9. Coronary artery disease. 10. Obesity. 11. Thoracolumbar scoliosis. 12. 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 CLINICAL SERVICES CONSULTANT: Dr. Aj. PROCEDURE: Right inferior parathyroidectomy. BRIEF HISTORY: Please see the H and P that was done on 12/26/2018. In brief, she is an 88-year- old, white female with above problems, admitted to the hospital with above complaints, elevated blood pressure, falling. Patient has a lot of comorbid conditions, admitted to the hospital for control of the blood pressure. The patient has a preop workup done before, scheduled for parathyroidectomy on the following day. Dr. Aj was consulted. Postoperative course was uneventful. There was no evidence of hungry bone syndrome noted. Calcium was normal. LABS: Labs are as follows: PT 13, INR 1.0. A pH is 7.44, pCO2 43, PO2 60 on room air. Sodium 140, potassium 3.9. BUN 34, creatinine 1.2, calcium 9.4. PTH before the surgery 1334, after surgery 38. DISCHARGING INSTRUCTIONS FOLLOWS: Continue to monitor blood pressure. Aspirin 325 daily, Zocor 20 mg at bedtime, Combigan 1 drop p.o. b.i.d. Keppra 500 in the morning and 750 at bedtime, gabapentin 300 daily, MiraLAX 17 g daily, vitamin D 50,000 units once a week, probiotic 1 tablet daily, Lasix 20 mg in the morning, prednisolone drop one drop p.o. b.i.d., Artificial Tear drops one drop 4 times daily. Outpatient in my office. cc: MD Stevan Zaragoza MD
== END 2018-12-29 11:32 | disposition home health service (06) ==
LOC: INTOOBSV 12:09 → DIRADM 12:09 → EDIPHOLD 16:23 → 4N 21:22
PROVIDERS: ADMIT Internal Medicine; ATTEND Internal Medicine